=== PATIENT | female | born 1975 | race Caucasian/White ===

== ENCOUNTER 2023-05-24 14:46 | Outpatient (AMB) | payer MEDICARE, MEDICAID, SELFPAY ==
--- NOTE | 2023-05-24 14:52 | AM.OFFWIN_ITS ---
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 she states she has had surgery on her shoulders and the pain is not coming from shoulder. Patient Tobacco Use Status: Never used Tobacco Do you need a note to return to daycare/school/sports/work: Yes HPI HPI Comments History of Present Illness Details This is a 47-year-old female who presents to the office today for sick visit. Patient complaining of persistent posterior neck pain x2 weeks. Patient states she is status post left total shoulder replacement approximately 2 and half months ago. She states she has been following up with her orthopedic surgeon without difficulty and her shoulder is healing as expected. However, patient started to develop neck pain approximately 2 weeks ago. She denies any numbness/weakness/paresthesias of her extremities. She denies any known trauma or injury to the area. Patient states that she is on oxycodone status post shoulder surgery but she rarely takes the oxycodone as it makes her drowsy and she has to take care of her grandson. Patient states she has been on multiple medications including oxycodone, tramadol, gabapentin, methocarbamol, and lidocaine patches. She states the most helpful medication has been tramadol as this does not make her drowsy. Methocarbamol is also helpful but only last for about 3 hours. Patient states she is under a lot of stress as her daughter just gave but her daughter had eclampsia and her grandson is still in the hospital with a brain bleed and seizures. Patient was referred to physiatry for steroid injections but was unable to make an appointment until July. She states she is unable to function with the pain and she is unable to wait until then. [facility] Social History Patient Tobacco Use Status: Never used Tobacco Review of Systems Const All systems reviewed & are unremarkable except as noted in HPI and below Reports no additional complaints Eyes Reports no additional complaints ENT Reports no additional complaints Card Reports no additional complaints Resp Reports no additional complaints GI Reports no additional complaints Reports no additional complaints Musc Reports no additional complaints Skin/Breast Reports system reviewed and no additional complaints, except as documented Neuro Reports no additional complaints Psych Reports no additional complaints Endo Reports no additional complaints Jaleel/Lymph Reports no additional complaints Aller/Immun Reports no additional complaints Physical Exam Vital Signs: Last Vital Signs Pulse 86 05/24/23 14:54 BP 120/80 05/24/23 14:54 Pulse Ox 98 05/24/23 14:54 Oxygen Delivery Method Room Air 05/24/23 14:54 Const General: cooperative, healthy appearing, no acute distress and well developed Orientation/consciousness: patient oriented x3 HEENT Head: Yes normal to inspection Ears: hearing grossly normal bilaterally General nose exam: Normal external nose present Face and sinus: Yes normal facial exam Mouth: Normal oral and palatal mucosa present Eyes General: appearance normal, both eyes and all related structures Pupils: Equal, round and reactive pupils present EOM: EOMs intact bilaterally Neck Other: Full range of motion with mild pain. No meningeal signs. Mild tenderness to palpation of the paraspinal musculature bilaterally and mild tenderness to palpation and palpable muscle spasm of the trapezius bilaterally. Resp Effort & Inspection: normal respiratory effort and no respiratory distress Auscultation: clear to auscultation bilaterally Cardio Rate: regular rate Rhythm: regular rhythm Heart sounds: no gallops, no murmurs and no rubs Peripheral pulses: Peripheral pulses 2+ throughout GI Inspection: No distended Palpation (GI): Soft to palpation and nontender Auscultation: normal bowel sounds Skin General skin exam: no rashes or lesions noted Neuro General: patient oriented x3 Cranial nerves: Yes CN's II-XII intact bilaterally and Yes Equal, round and reactive pupils present Gait exam (Neuro): Normal gait present Motor exam (neuro): 5/5 motor strength present throughout Extrem General: Yes normal to inspection, Yes full ROM and Yes no clubbing, cyanosis or edema Psych Appearance: grossly normal Mental Status: mental status grossly normal Assessment & Plan Assessment & Plan (1) Cervicalgia: Code(s): M54.2 - Cervicalgia Plan: This is a 47-year-old female who is status post left shoulder replacement complaining of persistent neck pain despite multiple medications. Patient is presenting to the walk-in clinic today requesting a refill of tramadol as this is the only medication that seems to help. Patient states she also has oxycodone at home but she very rarely takes this as it makes her drowsy and she is helping to take care of her daughter and grandson in the hospital and she is unable to do her job while she is taking oxycodone. I explained to the patient that I can only give her a short course of tramadol and methocarbamol given this is just a walk-in clinic. Patient's Mass Pat was reviewed and she picked up 30 oxycodone 5 mg tablets on 01/31/2023 and has not had any other opioids dispensed since then. I strongly encouraged the patient to call the physiatry office and try to get an earlier appointment for her steroid injections. Patient was made aware that opioids and opioid analgesics are not a long-term solution for chronic neck pain. Patient verbalizes her understanding and she is in agreement with the plan. Medications: New methocarbamol 1,000 mg PO TID PRN 14 tabs 0RF muscle spasm tramadol 50 mg PO DAILY PRN 7 tabs 0RF pain Coding Level of Care Code New Pt Level 3 (79563) Diagnoses Cervicalgia M54.2
[2023-05-24 14:54] VITALS: BP 120/80; PULSE 86; O2SAT 98
== END 2023-05-24 15:30 | disposition home or self-care (01) ==
PROVIDERS: PCP Family Medicine; Visit Provider Physician Assistant Medical
DX: M54.2 Cervicalgia (principal)
CPT/HCPCS: 99203

== ENCOUNTER 2023-06-28 11:20 | Outpatient (AMB) | payer MEDICARE, MEDICAID, SELFPAY ==
[2023-06-28 12:40] VITALS: BP 130/70; PULSE 80; TEMP 36.8; O2SAT 99; BMI 34.0
--- NOTE | 2023-06-28 12:40 | AM.OFFWIN_ITS ---
Intake Vital Signs 06/28/23 12:40 Height 5 ft 4 in Weight 198 lb BMI 34.0 BP 130/70 Blood Pressure Location Lt brachial Position Sitting Pulse 80 Pulse Source Pulse Oximeter Temp 98.3 F Temp Source Temporal Artery Scan Pulse Oximetry (%) 99 Intake Visit Reasons: EP-Neck still [phone] Intake Note: pt is here for c/o neck pain Patient Tobacco Use Status: Never used Tobacco Allergies No Known Allergies Allergy (Verified 06/28/23 13:20) Medication List - Last Reconciled 06/28/23 by Matt Gustafson MD methocarbamol 1,000 mg PO TID PRN tramadol 50 mg PO DAILY tramadol 50 mg PO DAILY PRN Do you need a note to return to daycare/school/sports/work: Yes HPI EP-Neck still [phone] HPI Details 47-year-old female presents to the [facility] for a sick visit. Patient is requesting a 3 day refill on her tramadol and muscle relaxant. She has an upcoming appointment with the surgeon regarding her neck pain. Patient recently had left shoulder surgery in unrelated to it is having neck pain. She has received injections to relieve the pain in her neck many times in the past. Patient is also requesting a note for work. She is still having limited range of motion in her left arm after the surgery. [facility] Social History Patient Tobacco Use Status: Never used Tobacco Physical Exam Vital Signs: Last Vital Signs Temp 98.3 F 06/28/23 12:40 Pulse 80 06/28/23 12:40 BP 130/70 06/28/23 12:40 Pulse Ox 99 06/28/23 12:40 BMI result Body Mass Index 34.0 Const General: cooperative and healthy appearing Nutritional Appearance: well nourished Limitations: no limitations HEENT Head: Yes normal to inspection Eyes General: appearance normal, both eyes and all related structures Neck Neck: Yes normal visual inspection Extrem Other: Right shoulder: No AC joint tenderness. Able to abduct her arm up to 90 degr ees. Full abduction. Full internal and external rotation at the shoulder. Flexion of the arm at the shoulder is limited to 30 degrees. Greater elicits pain. Assessment & Plan Assessment & Plan (1) Cervicalgia: Code(s): M54.2 - Cervicalgia Plan: Three days prescription for tramadol and muscle relaxant provided. Previous visit reviewed. No further prescriptions from this office. Coding Level of Care Code Est Pt Level 3 (18190) Diagnoses Cervicalgia M54.2
== END 2023-06-28 13:21 | disposition home or self-care (01) ==
LOC: HO.HMGWI 11:21
PROVIDERS: PCP Family Medicine
DX: M54.2 Cervicalgia (principal)
CPT/HCPCS: 99213

== ENCOUNTER 2023-07-03 09:24 | Outpatient (AMB) | payer MEDICARE, MEDICAID, SELFPAY ==
[2023-07-03 09:28] VITALS: BMI 34.0
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
== END 2023-07-03 10:19 | disposition home or self-care (01) ==
PROVIDERS: PCP Family Medicine; Visit Provider Physical Medicine & Rehabilitation
DX: M79.18 Myalgia, other site (principal)
CPT/HCPCS: 20553; 99204

== ENCOUNTER 2023-07-03 12:48 | Outpatient (REF) | payer MEDICARE, MEDICAID, SELFPAY ==
--- NOTE | ~2023-07-03 | XR_ITS ---
EXAMINATION: XR CERVICAL SPINE CLINICAL INFORMATION: Shoulder COMPARISON: None available. TECHNIQUE: 3 views of the cervical spine were obtained. FINDINGS: There is straightening of cervical lordosis. Vertebral bodies are well aligned and intervertebral discs are preserved. Pedicles are intact and there is no evidence of spondylolysis or spondylolisthesis. Soft tissues unremarkable. XR/XR cervical spine 3V IMPRESSION: Straightening of cervical lordosis as a result of muscle spasm.
== END 2023-07-03 12:49 | disposition home or self-care (01) ==
LOC: HO.HOSX 12:48
PROVIDERS: Visit Provider Physical Medicine & Rehabilitation
DX: M54.2 Cervicalgia (principal); M79.18 Myalgia, other site
CPT/HCPCS: 20553; 72040; 99202

== ENCOUNTER 2023-07-11 11:56 | Outpatient (AMB) | payer MEDICARE, MEDICAID, SELFPAY ==
[2023-07-11 12:13] VITALS: BMI 34.0
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
== END 2023-07-11 12:39 | disposition home or self-care (01) ==
PROVIDERS: PCP Family Medicine; Visit Provider Physical Medicine & Rehabilitation
DX: M54.2 Cervicalgia (principal); G89.29 Other chronic pain; M79.18 Myalgia, other site
CPT/HCPCS: 20553; 99214

== ENCOUNTER → 2023-07-11 11:56 | Outpatient (BNVA) | payer MEDICARE, MEDICAID, SELFPAY | PROVIDERS: PCP Family Medicine; Visit Provider Physical Medicine & Rehabilitation | DX: M79.18 Myalgia, other site (principal); M54.2 Cervicalgia; G89.29 Other chronic pain | CPT/HCPCS: 20553; 99212 ==

== ENCOUNTER → 2023-07-17 12:44 | Outpatient (BNVA) | payer MEDICARE, MEDICAID, SELFPAY | PROVIDERS: PCP Family Medicine; Visit Provider Physical Medicine & Rehabilitation | DX: M79.18 Myalgia, other site (principal) | CPT/HCPCS: 20553 ==

== ENCOUNTER 2023-07-17 12:47 | Outpatient (AMB) | payer MEDICARE, MEDICAID, SELFPAY ==
--- NOTE | 2023-07-17 12:45 | MHC.OFFVIS ---
Intake Vital Signs 07/17/23 12:46 Height 5 ft 4 in Weight 198 lb BMI 34.0 Intake Visit Reasons: OV- Cervicalgia INJ #2 Intake Note: Amy is a 47 year old female who presents today for her third trigger point injection of her neck . She reports that this last injection helped but the following day she was unable to be at work. She would like to have a note that will explain why she is unable to be at work the day following her injection. Allergies levofloxacin [From Levaquin] Allergy (Verified 07/11/23 12:14) Hives Seashell Allergy (Uncoded 07/11/23 12:14) unknown HPI HPI Comments History of Present Illness Details Here for 3rd trigger point injection. Had post injection pain for 1 day after class 1. Overall feeling better. [facility] Medical History Chronic neck pain Myofascial pain Social History Patient Tobacco Use Status: Never used Tobacco Physical Exam Vital Signs: BMI result Body Mass Index 34.0 Office Procedures Therapeutic Injection Therapeutic Injection Details: Trigger point injection, bilateral upper trapezius. Conset obtained. Trigger points palpated on bilateral upper trapezius, 2 on each side. 1 ml of 2% Lidocaine injected in each site, total of 4 mL. Patient tolerated procedure well. Post-injection instructions given. 89782-Gwihlqa Point Injection =/>3 sites All charges added?: Procedure code (CPT) selection complete Results Reviewed Results Reviewed: 07/17/23 12:37 Lidocaine HCl 2 % MPF [Xylocaine 2 % MPF] 5 ml .ROUTE .[facility] Assessment & Plan Assessment & Plan (1) Myofascial pain: Code(s): M79.18 - Myalgia, other site Plan Tolerated procedure well. Work note to excuse from work 1 day post injection. Assessment and plan discussed with patient, and patient was agreeable. All questions were answered thoroughly. Anaid Bui MD, HETAL Board Certified, [place] [employer] and Rehabilitation (ABPMR) Board Certified, [place] [employer] Electrodiagnostic Medicine (ABEM) Orders: Orders Trigger Point Injection Today M79.18 - Myalgia, other site Coding Level of Care Code Procedure Only Diagnoses Myofascial pain M79.18 CPT Codes Therapeutic Injection - Ther Injection 2: 15069-Gbjuisp Point Injection =/>3 sites ([id number])
[2023-07-17 12:46] VITALS: BMI 34.0
== END 2023-07-17 13:02 | disposition home or self-care (01) ==
PROVIDERS: PCP Family Medicine; Visit Provider Physical Medicine & Rehabilitation
DX: M79.18 Myalgia, other site (principal)
CPT/HCPCS: 20553

== ENCOUNTER 2023-10-29 08:35 | Outpatient (AMB) | payer MEDICARE, MEDICAID, SELFPAY ==
[2023-10-29 08:43] VITALS: BP 112/70; PULSE 101; TEMP 37.1; O2SAT 99; BMI 33.0
--- NOTE | 2023-10-29 08:43 | AM.OFFWIN_ITS ---
Intake Vital Signs 10/29/23 08:43 Height 5 ft 4 in Weight 192 lb BMI 33.0 BP 112/70 Blood Pressure Location Lt brachial Position Sitting Pulse 101 H Pulse Source Pulse Oximeter Temp 98.8 F Temp Source Temporal Artery Scan Pulse Oximetry (%) 99 Oxygen Delivery Method Room Air Intake Visit Reasons: EP Lower back pain Intake Note: pt is here today for lower back pain started yesterday Patient Tobacco Use Status: Never used Tobacco Allergies levofloxacin [From Levaquin] Allergy (Verified 10/29/23 08:43) Hives Seashell Allergy (Uncoded 07/11/23 12:14) unknown Do you need a note to return to daycare/school/sports/work: No HPI HPI Comments History of Present Illness Details 48-year-old female presents today compla ining of acute low back pain that started 24 hours ago. The patient stated she took a borrowed baclofen without results. She has a past medical history of a hysterectomy 1 week ago of which she has no problems. She has no abdominal pain she is passing gas and has no trouble with her stool and/or urinary output. She states her back pain began when she bent over to milk pickup driver a small package that was delivered to her doorstep. The patient denies any radiating pain numbness tingling tingling or paresthesias in her lower extremities. She has no pain when seated but moving to a standing or walking position causes increasing pain directly over her lumbar spine at L4-5. [facility] Medical History Chronic neck pain Myofascial pain Social History Patient Tobacco Use Status: Never used Tobacco Review of Systems [facility] Reports arthralgias Physical Exam Vital Signs: Last Vital Signs Temp 98.8 F 10/29/23 08:43 Pulse 101 H 10/29/23 08:43 BP 112/70 10/29/23 08:43 Pulse Ox 99 10/29/23 08:43 Oxygen Delivery Method Room Air 10/29/23 08:43 BMI result Body Mass Index 33.0 Const General: acute distress moderate HEENT Head: Yes normal to inspection, Yes normocephalic and Yes atraumatic Ears: hearing grossly normal bilaterally General nose exam: Normal external nose present Face and sinus: Yes normal facial exam Eyes General: appearance normal, both eyes and all related structures Chest Chest palpation & inspection: normal inspection of the chest Resp Effort & Inspection: normal respiratory effort Auscultation: clear to auscultation bilaterally Cardio Rate: regular rate Rhythm: regular rhythm GI Inspection: Yes abdominal wall ecchymosis (At arthroscopy portals), Yes incision (Arthroscopy portals present no sign of infection) and Yes scar (hysterectomy arthroscopy portals were present with mild ecchymosis ) Palpation (GI): Soft to palpation Percussion: Yes normal to percussion Auscultation: normal bowel sounds General: Yes no CVA tenderness Back/Spine/Pelvis Back: no CVA tenderness Thoracic/Lumbar Spine: thoraco-lumbar ROM normal (Limited due to pain), straight leg raise negative bilaterally and lumbar spinal tenderness at L4 and at L5 Skin Rashes: no rashes Neuro Motor exam (neuro): Normal motor muscle tone present throughout Results AMB Urinalysis, Automated UA Leukoctes 0 Amrit/uL Last Edit by Castro Rodrigez CMA on 10/29/23 09:46 UA Nitrite Negative Last Edit by Castro Rodrigez CMA on 10/29/23 09:46 UA Urobilinogen 0.2 mg/dL Last Edit by Castro Rodrigez CMA on 10/29/23 09 :46 UA Protein 0 mg/dL Last Edit by Castro Rodrigez CMA on 10/29/23 09:46 UA pH 5.5 Last Edit by Castro Rodrigez CMA on 10/29/23 09:46 UA Blood 80 Bk/uL Last Edit by Castro Rodrigez CMA on 10/29/23 09:46 UA Specific [place] 1.025 Last Edit by Castro Rodrigez CMA on 10/29/23 09:46 UA Ketone Negative Last Edit by Castro Rodrigez CMA on 10/29/23 09:46 UA Bilirubin 0 mg/dL Last Edit by Castro Rodrigez CMA on 10/29/23 09:46 UA Glucose 0 mg/dL Last Edit by Castro Rodrigez CMA on 10/29/23 09:46 Results Reviewed Results Reviewed: X-ray of the lumbar spine is reviewed today which seemed to have no bony abnormalities. Will call the patient if radiologist presents any findings. Assessment & Plan Assessment & Plan (1) Low back pain: Code(s): M54.50 - Low back pain, unspecified Plan: The patient will use a muscle relaxer for 2 or 3 days to see if we can relieve the acute low back pain. She was instructed to contact her surgeon to be sure there isn't a late developing surgical postop complication. She was advised that if the pain increases or her lower extremities become weak she is to go to the emergency room as soon as possible Plan See plan Orders: Orders AMB Urinalysis Automated Today Z13.9 - Encounter for screening, unspecified XR lumbar spine 2-3V Today Medications: New cyclobenzaprine 5 mg PO TID 14 tabs 0RF Coding Level of Care Code Est Pt Level 3 (28606) Diagnoses Low back pain M54.50 Time Spent (min) 30
== END 2023-10-29 10:19 | disposition home or self-care (01) ==
PROVIDERS: PCP Family Medicine; Visit Provider Physician Assistant Medical
DX: M54.50 Low back pain, unspecified (principal)
CPT/HCPCS: 81003; 99213

== ENCOUNTER 2023-10-29 09:16 | Outpatient (REF) | payer MEDICARE, MEDICAID, SELFPAY ==
--- NOTE | ~2023-10-29 | XR_ITS ---
EXAMINATION: XR LUMBOSACRAL SPINE CLINICAL INFORMATION: Low back pain COMPARISON: None available. TECHNIQUE: Three views of the lumbosacral spine. FINDINGS: The vertebral bodies and posterior elements are normal. The disc spaces are preserved and the vertebral alignment is normal. The paraspinal soft tissues are normal. XR/XR lumbar spine 2-3V IMPRESSION: Unremarkable chest examination.
== END 2023-10-29 09:17 | disposition home or self-care (01) ==
LOC: HO.HMGCX 09:16
PROVIDERS: PCP Nurse Practitioner Primary Care; Visit Provider Physician Assistant Medical
DX: M54.50 Low back pain, unspecified (principal)
CPT/HCPCS: 72100

== ENCOUNTER 2023-11-06 15:43 | Outpatient (AMB) | payer MEDICARE, MEDICAID, SELFPAY ==
--- NOTE | 2023-11-06 16:02 | MHC.PC.OV ---
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 Intake Note: Pt is here to est care Dr Preciado executive producer [facility] oncology/[facility] Allergies levofloxacin [From Levaquin] Allergy (Verified 11/06/23 16:09) Hives Seashell Allergy (Uncoded 11/06/23 16:09) unknown Tobacco use date assessed: 11/06/23 Dental Screening Dental Screen Date: 11/06/23 Did you have a dental visit in the last 12 months?: Yes Did you have a dental problem in the last 6 months where you did not have access to dental care?: No Was dental information given to patient?: Patient has dentist 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 Mammo is up to date according to pt. Due for colon screen, will refer to GI. Pt underwent a left shoulder rotator cuff repair in January of 2023 at [facility]. She went to PT after surgery. She does follow up with ortho and receives regular cortisone injections. Pt reports ongoing pain to her neck. Previous XR showed straightening of cervical lordosis as a result of muscle spasm. She has failed PT. She saw a records tech and had myofascial injections which made the pain worse. Will order MRI at this point. [facility] Medical History Chronic neck pain Myofascial pain Family History (Updated 11/06/23 @ 16:13 by Nava Villeda CMA) Father Mental health disorder Mother Mental health disorder Maternal Grandfather Mental health disorder Maternal Grandfather Mental health disorder Paternal Grandfather Mental health disorder Paternal Grandmother Mental health disorder Social History Housing: House Patient Tobacco Use Status: Never used Tobacco e-Cigarette/Vaping Use: Currently Using Second Hand Smoke Exposure: No service: No Current occupational status: employed Current occupation: [email or web address] Current occupational exposures/hazards: No Cognitive needs: No Hearing needs: No Vision needs: No Questionnaire PHQ-9 Over the last 2 weeks, how often have you been bothered by any of the following problems? 1. Little interest or pleasure in doing things: nearly every day 2. Feeling down, depressed, or hopeless: nearly every day 3. Trouble falling or staying asleep, or sleeping too much: nearly every day 4. Feeling tired or having little energy: nearly every day 5. Poor appetite or overeating: nearly every day 6. Feeling bad about yourself - or that you are a failure or have let yourself or your family down: nearly every day 7. Trouble concentrating on things, such as reading the newspaper or watching television: nearly every day 8. Moving or speaking so slowly that other people could have noticed. Or the opposite - being so fidgety or restless that you have been moving around a lot more than usual: nearly every day 9. Thoughts that you would be better off or of hurting yourself in some way: not at all Total score: 24 Depression Screening Interpretation: Positive (seen by team today, denies any si or hi) Depression Screening Follow-up: Existing condition Depression Screening Done: Yes Source: Developed by Drs. Jimy Carranza, Elsie iBll, Dilan Bass and colleagues, with an educational maureen from [employer]. Thrive Questionnaire Date Thrive assessed: 11/06/23 I am a: Patient What is your living situation today?: I have a steady place to live Within the past 12 months, did the food you bought not last and you didn't have the money to get more?: Sometimes True Within the past 12 months, did you worry whether your food would run out before you got money to buy more?: Sometimes True Do you have trouble paying for medicines?: No Do you have trouble getting transportation to medical appointments?: No Do you have trouble paying your heating and electricity bill?: Yes Do you have trouble taking care of your child, family member or friend?: No Do you have trouble with day-to-day activities such as bathing, preparing meals, shopping, managing finances, etc.?: No Are you currently unemployed and looking for a job?: No Are you interested in more education?: No Currently or been in a relationship where the following occur: no concerns reported THRIVE Score: 3 AUDIT C Alcohol Use Questionnaire (AUDIT-C) 1. How often do you have a drink containing alcohol?: Never Total Score: 0 JAIMIE-7 AMB Questionnaire JAIMIE-7 Date JAIMIE - 7 assessed: 11/06/23 Feeling nervous, anxious, or on edge: 3 = Nearly every day Not being able to stop or control worryin = Nearly every day Worrying too much about different things: 3 = Nearly every day Trouble relaxin = Nearly every day Being so restless that it is hard to sit still: 3 = Nearly every day Becoming easily annoyed or irritable: 3 = Nearly every day Feeling afraid as if something awful might happen: 3 = Nearly every day Total JAIMIE-7 score (0-4 normal; 5-9 mild; 10-14 moderate; 15-21 severe): 21 Source: Developed by Drs. Jimy Carranza, Elsie Bill, Dilan Bass and colleagues, with an educational maureen from [employer]. JAIMIE-7 Assessment Billing JAIMIE-7 Assessment Tool: JAIMIE-7 Assessment 52537 (denies any si or hi,( robert [facility]) saw pt today) Review of Systems Const Reports as per [facility] Physical exam (Primary Care) Vital Signs: Last Vital Signs Pulse 96 11/06/23 16:07 BP 100/52 L 11/06/23 16:07 Pulse Ox 99 11/06/23 16:07 Oxygen Delivery Method Room Air 11/06/23 16:07 BMI result Body Mass Index 33.1 Tobacco/Smoking Status: Tobacco use Status Tobacco use date assessed 11/06/23 11/06/23 16:18 Patient Tobacco Use Status Never used Tobacco 11/06/23 16:03 e-Cigarette/Vaping Use Currently Using 11/06/23 16:18 PHQ-9: PHQ-9 Score PHQ-9: Total score 24 11/06/23 16:47 Depression Screening Interpretation: Positive (seen by team today, denies any si or hi) Depression Screening Follow-up: Existing condition Thrive Assessment: Date of Thrive Assessment Date Thrive assessed 11/06/23 11/06/23 16:20 Currently or been in a relationship where the following occur: no concerns reported Const General: cooperative Nutritional Appearance: obese Orientation/consciousness: patient oriented x3 Resp Effort & Inspection: normal respiratory effort Auscultation: clear to auscultation bilaterally Cardio Rate: regular rate Rhythm: regular rhythm Heart sounds: S1 normal heart sound present and S2 normal heart sound present Back/Spine/Pelvis Other: cervical neck pain exacerbated with chin tucks, chin raises, and turning head side to side, + spurlings to left with radicular symptoms to left shoulder Skin Other: 5 abd lap sites without s/s of infection Neuro General: patient oriented x3 Psych Appearance: grossly normal Mental Status: mental status grossly normal Speech and movement: Normal speech and movement present Affect: normal affect Attitude: cooperative Thought process: Normal thought process present Thought content: Normal thought content present Insight: Good insight present (Psych) Judgement: Good judgement present (Psych) Assessment and Plan Assessment & Plan (1) Physical exam: Code(s): Z00.00 - Encounter for general adult medical examination without abnormal findings Plan: Labs ordered for future PE (2) Screening for colon cancer: Code(s): Z12.11 - Encounter for screening for malignant neoplasm of colon Plan: Referred to GI (3) Chronic neck pain: Code(s): M54.2 - Cervicalgia; G89.29 - Other chronic pain Plan: MRI ordered Plan The patient agreed to the use of a medical laboratory technical officer for this encounter. Scribed for ROBINA Westbrook by Jodi Vale medical laboratory technical officer, on 11/06/2023 at 14:45 EST. Orders: Orders MR cervical spine wo con Today G89.29 - Other chronic pain, M54.2 - Cervicalgia Comprehensive [place]. Panel Fast Today Z00.00 - Encounter for general adult medical examination without abnormal findings TSH reflex Free T4 Today Z00.00 - Encounter for general adult medical examination without abnormal findings UA CC w/rflx Micro + Cult Today Z00.00 - Encounter for general adult medical examination without abnormal findings Complete Blood Count Auto Diff Today Z00.00 - Encounter for general adult medical examination without abnormal findings Lipid Panel Today Z00.00 - Encounter for general adult medical examination without abnormal findings Referrals Gastroenterology Referral Z12.11 - Encounter for screening for malignant neoplasm of colon Medications: New clonidine HCl 0.1 mg PO BID 90 days 180 tabs 0RF Coding Level of Care Code New Pt Level 3 (20584) Diagnoses Physical exam Z00. Screening for colon cancer Z12.11 Chronic neck pain M54.2; G89.29 Additional Codes JAIMIE-7 Assessment Billing - JAIMIE-7 Assessment Tool: JAIMIE-7 Assessment 82071 ([id number])
[2023-11-06 16:07] VITALS: BP 100/52; PULSE 96; O2SAT 99; BMI 33.1
== END 2023-11-06 17:13 | disposition home or self-care (01) ==
PROVIDERS: PCP Family Medicine; Visit Provider Nurse Practitioner Family
DX: M54.2 Cervicalgia (principal); G89.29 Other chronic pain; Z12.11 Encounter for screening for malignant neoplasm of colon
CPT/HCPCS: 99213

== ENCOUNTER 2023-12-10 17:27 | Outpatient (REF) | payer MEDICARE, MEDICAID, SELFPAY ==
--- NOTE | ~2023-12-10 | MR_ITS ---
EXAMINATION: MR CERVICAL SPINE WITHOUT CONTRAST CLINICAL INFORMATION: Chronic neck pain COMPARISON: Cervical radiograph 07/03/2023 TECHNIQUE: MRI of the cervical spine was obtained using routine sequences without contrast. FINDINGS: Nonspecific straightening of the normal cervical lordosis. Trace retrolisthesis of C3-C4 and C4-C5. Cervical vertebral body heights are maintained. No expansile or destructive osseous lesion. The cervical spinal cord is normal in signal. C2-C3: No significant spinal canal or neural foraminal stenosis. C3-C4: Facet arthropathy. Trace central disc protrusion. The spinal canal and neural foramen are not significantly narrowed. C4-C5: Disc osteophyte complex with left subarticular disc protrusion. Facet arthropathy. The spinal canal is patent. Mild narrowing of the left neural foramen. C5-C6: Trace disc bulge. The spinal canal and neural foramen are patent. C6-C7: Small central disc protrusion without significant spinal canal or neural foraminal stenosis. C7-T1: No significant spinal canal or neural foraminal stenosis. MR/MR cervical spine wo con IMPRESSION: Mild multilevel degenerative changes of the cervical spine as described above. No significant spinal canal or neural foraminal stenosis.
== END 2023-12-10 17:28 | disposition home or self-care (01) ==
LOC: HO.MRI 17:27
PROVIDERS: PCP Nurse Practitioner Family; Visit Provider Nurse Practitioner Family
DX: M54.2 Cervicalgia (principal); G89.29 Other chronic pain
CPT/HCPCS: 72141

== ENCOUNTER 2024-01-02 12:51 | Outpatient (AMB) | payer MEDICARE, MEDICAID, SELFPAY ==
--- NOTE | 2024-01-02 12:56 | HO.SPINEOV ---
Intake Visit Reasons: Cervicalgia Intake Note: Ms. Randolph is here today c/o Chronic neck pain. Remelter Required: No Allergies levofloxacin [From Levaquin] Allergy (Verified 01/02/24 13:02) Hives Seashell Allergy (Uncoded 11/06/23 16:09) unknown Assessment & Plan Assessment & Plan (1) Chronic neck pain: Code(s): M54.2 - Cervicalgia; G89.29 - Other chronic pain Category: Medical Plan Dear Romeo Thank you for referring Mrs Randolph to our office today. She is a 48-year-old female presents to the office today for evaluation of a chronic neck pain which is in the posterior cervical midline, radiates out to the sides of her neck with limited range of motion. More recently started to get pain down her right arm going into her hand with feelings of numbness. She believes it all started sometime in June 2022 when she had a trauma to her left shoulder that ultimately dislocated it and caused a a full thickness tear of the rotator cuff. She ultimately underwent a repair of this last year but unfortunately the neck pain has persisted. She has done injections, specifically trigger point injections from time to time and these did work for a while but now stop. She tried physical therapy, chiropractic. She takes ibuprofen and Tylenol to help with the pain. PMH: Recently diagnosed with endometrial cancer and underwent a hysterectomy, oophorectomy. History of hypertension, , cholecystectomy, rotator cuff repair Social hx: She does not smoke but she does do vaping, denies any alcohol or drug abuse Medications: She takes clonidine, Seroquel, estrogen patches and ibuprofen/Tylenol Allergies: Levaquin Physical exam: She is awake alert oriented no acute distress, she has intact strength and reflexes, some diminished range of motion with lateral rotation. Imaging review: Cervical MRI done at [place] shows some very mild degenerative disc disease at C4-5 but otherwise it looks like a more less normal MRI, I do not see any evidence of nerve compression. Impression: 48-year-old female presents to the office today for evaluation of a chronic neck pain, more recently has intermittent arm pain, but her MRI is more less normal with no significant findings to explain the source of the pain. That being said, the pain could be muscular or myofascial and these things do not show up on MRI. I do not have any surgery to offer her to help with the symptoms. We did discuss follow-up with a pain management provider as she is interested in pursuing other nonoperative treatments. She did try someone within the [employer] system but did not have a great experience and would be interested in trying someone else. She will let me know how she would like to proceed with this. Thank you for allowing us to care for your patient. The total time spent with this visit with this patient was 45 minutes reviewing history, physical exam, cervical spine MRI imaging review, and implementation of treatment plan or further diagnostic testing Bryce Willingham MD,PhD [facility] Coding Level of Care Code New Pt Level 4 (36108) Diagnoses Chronic neck pain M54.2; G89.29
== END 2024-01-02 13:44 | disposition home or self-care (01) ==
PROVIDERS: PCP Nurse Practitioner Family; Referring Provider Nurse Practitioner Family; Visit Provider Physician Assistant
DX: M54.2 Cervicalgia (principal); G89.29 Other chronic pain
CPT/HCPCS: 99204

== ENCOUNTER → 2024-01-02 12:51 | Outpatient (BNVA) | payer MEDICARE, MEDICAID, SELFPAY | PROVIDERS: PCP Nurse Practitioner Family; Visit Provider Physician Assistant | DX: M54.2 Cervicalgia (principal); G89.29 Other chronic pain | CPT/HCPCS: 99202 ==

== ENCOUNTER 2024-01-02 13:56 | Outpatient (AMB) | payer MEDICARE, MEDICAID, SELFPAY ==
[2024-01-02 14:01] VITALS: BP 128/80; PULSE 92; TEMP 36.6; O2SAT 98; BMI 34.2
--- NOTE | 2024-01-02 14:01 | AM.OFFWIN_ITS ---
Intake Vital Signs 01/02/24 14:01 Height 5 ft 4 in Weight 199 lb BMI 34.2 BP 128/80 Blood Pressure Location Lt brachial Position Sitting Pulse 92 Pulse Source Pulse Oximeter Temp 97.9 F Temp Source Temporal Artery Scan Pulse Oximetry (%) 98 Oxygen Delivery Method Room Air Intake Visit Reasons: EP Neck pain/Refill Triamcinolone Acetonide 0.1 Intake Note: pt is here today for neck pain started 2 years ago Patient Tobacco Use Status: Never used Tobacco Allergies levofloxacin [From Levaquin] Allergy (Verified 01/02/24 14:08) Hives Seashell Allergy (Uncoded 11/06/23 16:09) unknown Do you need a note to return to daycare/school/sports/work: Yes HPI HPI Comments History of Present Illness Details The patient presents to urgent care for evaluation of 2 problems. She reports ongoing chronic neck pain which is disruptive to her during the day and at night. She has been using ibuprofen and Tylenol. She has been to see orthopedic surgeons and done physical therapy. There is nothing surgical that can be repaired. She is here requesting tramadol as this medication helps her and she is able to take it while working. She states that oxycodone is too strong for her she is unable to take it at work. As a secondary concern she has recurrent contact dermatitis on her feet and is requesting a refill of triamcinolone cream. She does not have any active inflammatory problem with the feet at the moment but there are some scars that she is able to show me. [facility] Medical History Chronic neck pain Myofascial pain Family History (Updated 11/06/23 @ 16:13 by Nava Villeda CMA) Father Mental health disorder Mother Mental health disorder Maternal Grandfather Mental health disorder Maternal Grandfather Mental health disorder Paternal Grandfather Mental health disorder Paternal Grandmother Mental health disorder Social History Housing: House Patient Tobacco Use Status: Never used Tobacco e-Cigarette/Vaping Use: Currently Using Second Hand Smoke Exposure: No service: No Current occupational status: employed Current occupation: [employer] Current occupational exposures/hazards: No Cognitive needs: No Hearing needs: No Vision needs: No Review of Systems Eyes Reports no additional complaints ENT Reports Normal hearing present and Denies dysphagia Card Denies dyspnea and Denies slow heart rate Resp Denies cough and Denies dyspnea GI Denies dysphagia and Denies heartburn Denies dysuria Musc Denies tingling Skin/Breast Reports lesions, Denies skin ulcer and Denies unusual bruising Neuro Reports Normal hearing present, Denies Sensory deficit (Neuro), Denies tingling and Denies paresthesias Physical Exam Vital Signs: Last Vital Signs Temp 97.9 F 01/02/24 14:01 Pulse 92 01/02/24 14:01 BP 128/80 01/02/24 14:01 Pulse Ox 98 01/02/24 14:01 Oxygen Delivery Method Room Air 01/02/24 14:01 BMI result Body Mass Index 34.2 Const General: healthy appearing and no acute distress Resp Effort & Inspection: normal respiratory effort and able to speak in complete sentences Skin Other: Feet: Lateral aspects bilaterally there is some hyperpigmentation from scars no open wounds Neuro Cranial nerves: Yes Normal hearing present Sensory Exam: No Sensory deficit (Neuro) Assessment & Plan Assessment & Plan (1) Chronic neck pain: Code(s): M54.2 - Cervicalgia; G89.29 - Other chronic pain (2) Contact dermatitis: Code(s): L25.9 - Unspecified contact dermatitis, unspecified cause Plan 1. Chronic neck pain. Will give patient a small prescription for tramadol. Recommend close follow-up to PCP. 2. Contact dermatitis. Will refill triamcinolone. Medications: New tramadol 25 mg PO Q8H PRN 14 tabs 0RF pain triamcinolone acetonide 0.1% 1 appl topical BID 15 grams 0RF Coding Level of Care Code Est Pt Level 3 (91098) Diagnoses Chronic neck pain M54.2; G89.29 Contact dermatitis L25.9
== END 2024-01-02 14:56 | disposition home or self-care (01) ==
PROVIDERS: PCP Nurse Practitioner Family; Visit Provider Emergency Medicine
DX: M54.2 Cervicalgia (principal); G89.29 Other chronic pain; L25.9 Unspecified contact dermatitis, unspecified cause
CPT/HCPCS: 99213

== ENCOUNTER 2024-01-04 11:59 | Outpatient (AMB) | payer MEDICARE, MEDICAID, SELFPAY ==
[2024-01-04 12:18] VITALS: BP 124/70; PULSE 100; TEMP 36.8; O2SAT 100; BMI 34.3
--- NOTE | 2024-01-04 12:18 | MHC.OFFWIV ---
Intake Vital Signs 01/04/24 12:18 Height 5 ft 4 in Weight 200 lb BMI 34.3 BP 124/70 Blood Pressure Location Lt brachial Position Sitting Pulse 100 Pulse Source Pulse Oximeter Temp 98.3 F Temp Source Oral Pulse Oximetry (%) 100 Oxygen Delivery Method Room Air Intake Visit Reasons: EP neck pain seeking pain medication Intake Note: pt was given a rx for tramadol 25mg, but ins doens't cover it, ins will cover 50mg instead: Spoke to steven the pharmacist at [facility] and it was verified Patient Tobacco Use Status: Never used Tobacco Allergies levofloxacin [From Levaquin] Allergy (Verified 01/02/24 14:08) Hives Seashell Allergy (Uncoded 11/06/23 16:09) unknown Medication List - Last Reconciled 01/04/24 by Kenia Villegas, PLASTICS ENGINEERING TEACHER- clonidine HCl 0.1 mg PO BID 90 days quetiapine (Seroquel) 100 mg PO BEDTIME triamcinolone acetonide 0.1% 1 appl topical BID HPI HPI Comments History of Present Illness Details Here today to receive a new prescription for tramadol. She was seen in this office and a prescription for tramadol 25 mg was sent to her pharmacy. Unfortunately the pharmacy was not able to get 25 mg tablets and they have not been able to receive a new order for 50 mg tabs to be sent in. ELECTRICAL TECHNOLOGY INSTRUCTOR was reviewed. Chart was reviewed. What she says today is consistent with what I am finding in the chart. Therefore a prescription for tramadol 50 mg take half a tab twice per day as needed dispense 10 with no refills will be given. She is aware that she needs to follow up with her primary care provider going forward in the urgent care will not continue to manage a refill any chronic medication. She reports that her primary care appointment is scheduled for January 27. [facility] Medical History Chronic neck pain Myofascial pain Family History (Updated 11/06/23 @ 16:13 by Nava Villeda CMA) Father Mental health disorder Mother Mental health disorder Maternal Grandfather Mental health disorder Maternal Grandfather Mental health disorder Paternal Grandfather Mental health disorder Paternal Grandmother Mental health disorder Social History Housing: House Patient Tobacco Use Status: Never used Tobacco e-Cigarette/Vaping Use: Currently Using Second Hand Smoke Exposure: No service: No Current occupational status: employed Current occupation: [employer] Current occupational exposures/hazards: No Cognitive needs: No Hearing needs: No Vision needs: No Physical Exam Vital Signs: Last Vital Signs Temp 98.3 F 01/04/24 12:18 Pulse 100 01/04/24 12:18 BP 124/70 01/04/24 12:18 Pulse Ox 100 01/04/24 12:18 Oxygen Delivery Method Room Air 01/04/24 12:18 BMI result Body Mass Index 34.3 Assessment & Plan Assessment & Plan (1) Chronic neck pain: Code(s): M54.2 - Cervicalgia; G89.29 - Other chronic pain Plan: . Plan This note is constructed using voice recognition software. While every effort has been made to ensure accuracy in safety analyst, still errors may have been included Sometimes, these errors may affect the content or meaning of the given sentence . Total time spent caring for the patient today was 30 minutes. This includes time spent before the visit reviewing the chart, time spent during the visit, and time spent after the visit on documentation Medications: New tramadol 25 mg (1/2 x 50 mg) PO BID PRN 10 tabs 0RF pain Coding Level of Care Code Est Pt Level 4 (94922) Diagnoses Chronic neck pain M54.2; G89.29
== END 2024-01-04 12:57 | disposition home or self-care (01) ==
PROVIDERS: PCP Nurse Practitioner Family; Visit Provider Nurse Practitioner Family
DX: M54.2 Cervicalgia (principal); G89.29 Other chronic pain
CPT/HCPCS: 99214

== ENCOUNTER 2024-01-28 13:37 | Outpatient (AMB) | payer MEDICARE, MEDICAID, SELFPAY ==
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
[2024-01-28 13:49] VITALS: BP 120/80; PULSE 78; O2SAT 100; BMI 35.0
== END 2024-01-28 15:17 | disposition home or self-care (01) ==
PROVIDERS: PCP Nurse Practitioner Family; Visit Provider Nurse Practitioner Family
DX: M54.2 Cervicalgia (principal); G89.29 Other chronic pain; M79.18 Myalgia, other site
CPT/HCPCS: 99213

== ENCOUNTER 2024-03-18 07:37 | Outpatient (REF) | payer MEDICARE, MEDICAID, SELFPAY ==
[2024-03-18 10:03] LABS: MANUAL DIFF FLAG NO
[2024-03-18 10:09] LABS: Appearance Urine Clear; Color Urine Dark Yellow; Glucose Urine UA Negative (Negative); Leukocyte Esterase Urine Negative (Negative); Nitrite Urine Negative (Negative); Specific Gravity - Urine 1.025 (1.005-1.025); UMIC TRIGGER UACC YES; Urine Blood Trace (Negative); Urine Ketones Negative (Negative); Urine Protein Trace mg/dL (Neg-Trace)
[2024-03-18 10:14] LABS: Basophils Percent Auto 0.3 % (0-2); Eosinophils Absolute Auto 0.1 X10*3/uL (0.0-0.4); Eosinophils Percent Auto 1.6 % (0-4); Hemoglobin 13.7 g/dl (12.0-16.0); Imm Gran Abs Auto 0.01 X10*3/uL (0.00-0.03); Imm Gran Pct Auto 0.2 % (0.0-0.4); Lymphocytes Absolute Auto 0.7 X10*3/uL (1.2-4.9); Lymphocytes Percent Auto 11.2 % (20-40); Mean Corpuscular HGB Conc 33.4 g/dl (31.0-35.0); Mean Corpuscular Hemoglobin 30.4 pg (27.0-33.0); Mean Corpuscular Volume 91.1 fL (80.0-98.0); Mean Platelet Volume 10.4 fL (9.4-12.3); Monocytes Absolute Auto 0.5 X10*3/uL (0.1-1.2); Monocytes Percent Auto 8.3 % (2-11); Neutrophils Absolute Auto 4.9 x10*3/uL (2.0-8.3); Neutrophils Percent Auto 78.4 % (45-73); Platelet Count 209 X10*3/uL (160-400); Red Cell Distribution Width 14.2 % (11.0-16.0); White Blood Count 6.2 X10*3/uL (4.8-10.8)
[2024-03-18 10:43] LABS: Bacteria Urine None Seen (None Seen); Hyaline Casts Urine 0-2 /LPF (0-2); WBC Urine 0-5 /HPF (0-5)
[2024-03-18 10:46] LABS: Alanine Aminotransferase 195 U/L (0-31); Albumin Level 4.1 g/dL (3.5-5.0); Alkaline Phosphatase 242 U/L (39-117); Anion Gap 11 (12-20); Aspartate Amino Transferase 364 U/L (5-31); Bilirubin Total 0.8 mg/dL (0.0-1.0); Blood Urea Nitrogen 10 mg/dL (9-16); Calcium 8.8 mg/dL (8.4-10.2); Carbon Dioxide 27 mmol/L (22-29); Chloride 104 mmol/L (96-108); Cholesterol 209 mg/dL (<200); Estimated Glomerular Filt Rate 57; Glucose Fasting 116 mg/dL (60-99); HDL Cholesterol 64 mg/dL (>40); LDL Cholesterol Calculated 123 mg/dL (<100); Potassium 3.4 mmol/L (3.3-5.1); Sodium 139 mmol/L (135-145); TSH reflex Free T4 49.17 uIU/mL (0.32-4.0); Total Protein 7.3 g/dL (6.5-8.0); Triglycerides 110 mg/dL (<150)
[2024-03-18 11:21] LABS: Free T4 (Free Thyroxine) < 0.42 ng/dL (0.71-1.85)
[2024-03-19 20:53] LABS: Triiodothyronine T3 Free 0.7 pg/mL (2.3-4.2); Triiodothyronine T3 Total 27 ng/dL (76-181)
== END 2024-03-18 07:38 | disposition home or self-care (01) ==
LOC: HO.HMGCLDS 07:37
PROVIDERS: PCP Nurse Practitioner Family; Visit Provider Nurse Practitioner Family
DX: Z00.00 Encounter for general adult medical examination without abnormal findings (principal); R79.89 Other specified abnormal findings of blood chemistry
CPT/HCPCS: 36415; 80053; 80061; 81001; 84439; 84443; 84480; 84481; 85025

== ENCOUNTER 2024-03-18 16:09 | Outpatient (AMB) | payer MEDICARE, MEDICAID, SELFPAY ==
[2024-03-18 16:09] VITALS: BP 118/80; PULSE 80; TEMP 36.8; O2SAT 98; BMI 35.0
--- NOTE | 2024-03-18 16:09 | MHC.OFFWIV ---
Intake Vital Signs 03/18/24 16:09 Height 5 ft 4 in Weight 204 lb BMI 35.0 BP 118/80 Blood Pressure Location Rt brachial Position Sitting Pulse 80 Pulse Source Pulse Oximeter Temp 98.2 F Temp Source Oral Pulse Oximetry (%) 98 Intake Visit Reasons: Vomiting/ pain bloating Intake Note: pt is here for vomitting and pain and bloating Patient Tobacco Use Status: Never used Tobacco Allergies levofloxacin [From Levaquin] Allergy (Verified 03/18/24 16:11) Hives Seashell Allergy (Uncoded 01/28/24 13:51) unknown Do you need a note to return to daycare/school/sports/work: No HPI HPI Comments History of Present Illness Details 48 y/o female patient who presents to walk in clinic with c/o abfominal pain associated with nausea and vomiting x 3 days. Pt reports symptoms started 3 days ago, but today feels worse and she is unable to retain any food/drinks in her stomach. She feels weak and tired. She has been sleeping the whole day with no relief. Her PCP Romeo Rutledge ordered labs, which showed Elevated LFTs, Martina and LDL. Patient was advised to go to the Emergency Room for further evaluation. Prior h/o Cholecystectomy. Pt does admit to prior h/o Substance Use disorder (denies IV use, only Snorting). [facility] Medical History Chronic neck pain Myofascial pain Family History Father Mental health disorder Mother Mental health disorder Maternal Grandfather Mental health disorder Maternal Grandfather Mental health disorder Paternal Grandfather Mental health disorder Paternal Grandmother Mental health disorder Social History Housing: House Patient Tobacco Use Status: Never used Tobacco e-Cigarette/Vaping Use: Currently Using Second Hand Smoke Exposure: No service: No Current occupational status: employed Current occupation: [employer] Current occupational exposures/hazards: No Cognitive needs: No Hearing needs: No Vision needs: No Review of Systems Const All systems reviewed & are unremarkable except as noted in HPI and below Physical Exam Vital Signs: Last Vital Signs Temp 98.2 F 03/18/24 16:09 Pulse 80 03/18/24 16:09 BP 118/80 03/18/24 16:09 Pulse Ox 98 03/18/24 16:09 BMI result Body Mass Index 35.0 Const General: no acute distress; No comfortable Nutritional Appearance: obese Orientation/consciousness: patient oriented x3 GI Palpation (GI): Soft to palpation, not firm, Tenderness to palpation present (GI) (Generalized tenderness), no guarding, not rigid, No hepatosplenomegaly present, no hernias and no masses Auscultation: Hypoactive bowel sounds present Rectal Exam - Female: deferred Neuro General: patient oriented x3, gait normal and moves all extremities Psych Speech and movement: Normal speech and movement present Assessment & Plan Assessment & Plan (1) Elevated liver enzymes: Code(s): R74.8 - Abnormal levels of other serum enzymes Plan: Advised to go to ED for further evaluation. Pt agreed to going to ED for Evaluation. (2) Nausea and vomiting in adult: Code(s): R11.2 - Nausea with vomiting, unspecified Plan: Advised to go to ED for further evaluation. Pt agreed to going to ED for Evaluation. Coding Level of Care Code Est Pt Level 3 (33707) Diagnoses Elevated liver enzymes R74.8 Nausea and vomiting in adult R11.2 Time Spent (min) 15
== END 2024-03-18 18:12 | disposition home or self-care (01) ==
PROVIDERS: PCP Nurse Practitioner Family; Visit Provider Nurse Practitioner Family
DX: R74.8 Abnormal levels of other serum enzymes (principal); R11.2 Nausea with vomiting, unspecified
CPT/HCPCS: 99213

== ENCOUNTER 2024-04-03 11:35 | Outpatient (REF) | payer MEDICARE, MEDICAID, SELFPAY ==
[2024-04-03 13:07] LABS: MANUAL DIFF FLAG NO
[2024-04-03 13:11] LABS: Basophils Absolute Auto 0.1 X10*3/uL (0.0-0.2); Basophils Percent Auto 0.7 % (0-2); Eosinophils Absolute Auto 0.1 X10*3/uL (0.0-0.4); Eosinophils Percent Auto 1.9 % (0-4); Hematocrit 41.3 % (37.0-47.0); Hemoglobin 13.9 g/dl (12.0-16.0); Imm Gran Abs Auto 0.02 X10*3/uL (0.00-0.03); Imm Gran Pct Auto 0.3 % (0.0-0.4); Lymphocytes Absolute Auto 2.1 X10*3/uL (1.2-4.9); Lymphocytes Percent Auto 28.4 % (20-40); Mean Corpuscular HGB Conc 33.7 g/dl (31.0-35.0); Mean Corpuscular Volume 92.2 fL (80.0-98.0); Mean Platelet Volume 9.9 fL (9.4-12.3); Monocytes Absolute Auto 0.3 X10*3/uL (0.1-1.2); Monocytes Percent Auto 4.4 % (2-11); Neutrophils Absolute Auto 4.7 x10*3/uL (2.0-8.3); Neutrophils Percent Auto 64.3 % (45-73); Platelet Count 296 X10*3/uL (160-400); Red Blood Count 4.48 X10*6/uL (4.20-5.50); Red Cell Distribution Width 13.8 % (11.0-16.0); White Blood Count 7.3 X10*3/uL (4.8-10.8)
[2024-04-03 13:15] LABS: Appearance Urine Clear; Color Urine Yellow; Glucose Urine UA Negative (Negative); Leukocyte Esterase Urine Negative (Negative); Nitrite Urine Negative (Negative); Urine Blood Negative (Negative); Urine Ketones Negative (Negative); Urine Protein Negative (Neg-Trace)
[2024-04-03 13:26] LABS: Acetaminophen LAB < 3 mcg/mL (<30)
[2024-04-03 13:39] LABS: Alanine Aminotransferase 31 U/L (0-31); Albumin Level 4.6 g/dL (3.5-5.0); Alkaline Phosphatase 126 U/L (39-117); Anion Gap 13 (12-20); Aspartate Amino Transferase 27 U/L (5-31); Bilirubin Direct 0.2 mg/dL (0.0-0.5); Bilirubin Total 0.5 mg/dL (0.0-1.0); Blood Urea Nitrogen 17 mg/dL (9-16); Carbon Dioxide 27 mmol/L (22-29); Chloride 103 mmol/L (96-108); Estimated Glomerular Filt Rate 52; Glucose Random 77 mg/dL (60-115); Potassium 3.9 mmol/L (3.3-5.1); Sodium 139 mmol/L (135-145); Total Protein 8.2 g/dL (6.5-8.0)
[2024-04-03 13:44] LABS: TSH reflex Free T4 65.03 uIU/mL (0.32-4.0)
[2024-04-03 13:46] LABS: HBS Num1 29.59 mIU/mL (0-7.99); HBc Num1 0.11 S/CO (0.00-0.79); HBsAGNum1 0.27 S/CO (0.00-0.99); Hepatitis A Antibody IgM 0.27 Index (0-0.79); Hepatitis B Core Antibody Nonreactive (Nonreactive); Hepatitis B Surface Antigen Negative (Negative); ~HepC Num1 0.14 S/CO (0.00-0.79); ~Hepatitis A Antibody IgM Nonreactive (Nonreactive); ~Hepatitis B Surface Antibody REACTIVE (Nonreactive); ~Hepatitis C Antibody Nonreactive (Nonreactive)
[2024-04-03 14:30] LABS: Free T4 (Free Thyroxine) < 0.42 ng/dL (0.71-1.85)
[2024-04-06 17:18] LABS: Thyroid Peroxidase Antibodies 6 IU/mL (<9)
== END 2024-04-03 11:36 | disposition home or self-care (01) ==
LOC: HO.HMGCLDS 11:35
PROVIDERS: PCP Nurse Practitioner Family; Visit Provider Nurse Practitioner Family
DX: Z00.00 Encounter for general adult medical examination without abnormal findings (principal); R74.8 Abnormal levels of other serum enzymes; R79.89 Other specified abnormal findings of blood chemistry
CPT/HCPCS: 36415; 80053; 80143; 81003; 82248; 84439; 84443; 85025; 86376; 86704; 86706; 86709; 86803; 87340

== ENCOUNTER 2024-04-06 10:24 | Outpatient (AMB) | payer MEDICARE, MEDICAID, SELFPAY ==
--- NOTE | 2024-04-06 11:21 | AM.OFFWIN_ITS ---
Intake Vital Signs 3 04/06/24 11:23 Height 5 ft 4 in Weight 207 lb BMI 35.5 BP 122/80 Blood Pressure Location Rt brachial Position Sitting Pulse 84 Pulse Source Pulse Oximeter Temp 98.2 F Temp Source Oral Pulse Oximetry (%) 98 Oxygen Delivery Method Room Air Intake Visit Reasons: thyroid issues, can not focus Intake Note: pt c/o thyroid issues Patient Tobacco Use Status: Never used Tobacco Allergies levofloxacin [From Levaquin] Allergy (Verified 04/06/24 11:22) Hives Seashell Allergy (Uncoded 04/06/24 11:22) unknown Do you need a note to return to daycare/school/sports/work: No HPI HPI Comments 2 History of Present Illness0 Details Patient presents to the walk-in today for sick visit Endorses worsening fatigue, hair loss, dry skin, weight gain Had recent labs completed, elevated TSH with low free T4 Has follow up appointment with her primary care doctor in approximately one-week but does not want to wait that long [facility] Medical History Chronic neck pain Myofascial pain Family History Father Mental health disorder Mother Mental health disorder Maternal Grandfather Mental health disorder Maternal Grandfather Mental health disorder Paternal Grandfather Mental health disorder Paternal Grandmother Mental health disorder Social History Housing: House Patient Tobacco Use Status: Never used Tobacco e-Cigarette/Vaping Use: Currently Using Second Hand Smoke Exposure: No service: No Current occupational status: employed Current occupation: [employer] Current occupational exposures/hazards: No Cognitive needs: No Hearing needs: No Vision needs: No Review of Systems Const All systems reviewed & are unremarkable except as noted in HPI and below Physical Exam Vital Signs: Last Vital Signs Temp 98.2 F 04/06/24 11:23 Pulse 84 04/06/24 11:23 BP 122/80 04/06/24 11:23 Pulse Ox 98 04/06/24 11:23 Oxygen Delivery Method Room Air 04/06/24 11:23 BMI result Body Mass Index 35.5 General: awake, alert, oriented. Answers questions appropriately. Fully engaged in examination. Skin: warm, dry, intact HEENT: Normocephalic. Hearing intact. Cardiac: External chest normal in appearance. Respiratory: No cough, audible wheezing or stridor. Abdomen: without gross distension. MS: No obvious swelling or deformities. Neurological: Oriented to person, place, time and situation. Thought process intact. No gait abnormalities appreciated. Psychiatric: Appropriate mood and affect. Good judgment and insight. Results Reviewed Results Reviewed: Assessment & Plan Assessment & Plan (1) Hypothyroid: Code(s): E03.9 - Hypothyroidism, unspecified Plan Discussed care with patient's primary care doctor, Dr. Wills. Will start on levothyroxine 25 mcg daily Follow up with PCP as planned Return here for any new worsening symptoms Medications: New 2 levothyroxine (Synthroid) 25 mcg PO DAILY 30 tabs 0RF Coding Level of Care Code Est Pt Level 3 (34499) Diagnoses Hypothyroid E03.9
[2024-04-06 11:23] VITALS: BP 122/80; PULSE 84; TEMP 36.8; O2SAT 98; BMI 35.5
== END 2024-04-06 12:18 | disposition home or self-care (01) ==
PROVIDERS: PCP Nurse Practitioner Family; Visit Provider Registered Nurse Emergency
DX: E03.9 Hypothyroidism, unspecified (principal)
CPT/HCPCS: 99213

== ENCOUNTER 2024-04-15 08:37 | Outpatient (AMB) | payer MEDICARE, MEDICAID, SELFPAY ==
--- NOTE | 2024-04-15 08:41 | MHC.PC.OV ---
Vital Signs 04/15/24 08:42 Height 5 ft 4 in Weight 208 lb BMI 35.7 BP 128/80 Blood Pressure Location Rt brachial Position Sitting Pulse 80 Pulse Source Pulse Oximeter Pulse Oximetry (%) 98 Intake Visit Reasons: Complete PE 5 months per Intake Note: pt is here for physical exam Scales Inspector Required: No Accompanied by: Self / Same As Patient Allergies levofloxacin [From Levaquin] Allergy (Verified 04/15/24 08:42) Hives Seashell Allergy (Uncoded 04/06/24 11:22) unknown Medication List - Last Reconciled 04/15/24 by ROBINA Barrientos clonidine HCl 0.1 mg PO BID 90 days estradiol 1 mg PO DAILY famotidine (Pepcid) 20 mg PO DAILY fluoxetine 20 mg PO DAILY levothyroxine (Synthroid) 25 mcg PO DAILY multivitamin 1 tab PO DAILY ondansetron 4 mg PO Q6-8H PRN quetiapine (Seroquel) 100 mg PO BEDTIME quetiapine mg PO tramadol 25 mg (1/2 x 50 mg) PO BID PRN triamcinolone acetonide 0.1% 1 appl topical BID Tobacco use date assessed: 11/06/23 Dental Screening Dental Screen Date: 11/06/23 HPI Complete PE 5 months per HPI Details Pt is here for a PE. Labs were already performed. Due for mammo, will order. 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 Pt has a GI appointment for her colonoscopy. Pt has a hx of hypothyroid. She is taking levothyroxine 25mcg which she started about 2 weeks ago. Will repeat labs in 2 months and adjust accordingly. PFSH Medical History Chronic neck pain Myofascial pain Surgical History Hx of section Hx laparoscopic cholecystectomy H/O rotator cuff surgery S/P IVAN (total abdominal hysterectomy) Family History Father Mental health disorder Mother Mental health disorder Maternal Grandfather Mental health disorder Maternal Grandfather Mental health disorder Paternal Grandfather Mental health disorder Paternal Grandmother Mental health disorder Social History Housing: House Patient Tobacco Use Status: Never used Tobacco e-Cigarette/Vaping Use: Currently Using Second Hand Smoke Exposure: No service: No Current occupational status: employed Current occupation: [employer] Current occupational exposures/hazards: No Cognitive needs: No Hearing needs: No Vision needs: No Questionnaire PHQ-9 Over the last 2 weeks, how often have you been bothered by any of the following problems? 1. Little interest or pleasure in doing things: several days 2. Feeling down, depressed, or hopeless: not at all 3. Trouble falling or staying asleep, or sleeping too much: not at all 4. Feeling tired or having little energy: several days 5. Poor appetite or overeating: not at all 6. Feeling bad about yourself - or that you are a failure or have let yourself or your family down: not at all 7. Trouble concentrating on things, such as reading the newspaper or watching television: several days 8. Moving or speaking so slowly that other people could have noticed. Or the opposite - being so fidgety or restless that you have been moving around a lot more than usual: not at all 9. Thoughts that you would be better off or of hurting yourself in some way: not at all Total score: 3 Depression Screening Interpretation: Negative Depression Screening Done: Yes 37902 - PHQ-9 Billing: Yes Source: Developed by Drs. Jimy Carranza, Elsie Bill, Dilan Bass and colleagues, with an educational maureen from [employer]. Thrive Questionnaire Date Thrive assessed: 04/15/24 I am a: Patient What is your living situation today?: I have a steady place to live Within the past 12 months, did the food you bought not last and you didn't have the money to get more?: Never true Within the past 12 months, did you worry whether your food would run out before you got money to buy more?: Never true Do you have trouble paying for medicines?: No Do you have trouble getting transportation to medical appointments?: No Do you have trouble paying your heating and electricity bill?: No Do you have trouble taking care of your child, family member or friend?: No Do you have trouble with day-to-day activities such as bathing, preparing meals, shopping, managing finances, etc.?: No Are you currently unemployed and looking for a job?: No Are you interested in more education?: No Please select the resources that you would like help with: None Currently or been in a relationship where the following occur: No concerns reported THRIVE Score: 0 AUDIT C Alcohol Use Questionnaire (AUDIT-C) 1. How often do you have a drink containing alcohol?: Never 3. How often do you have six or more drinks on one occasion?: Never Total Score: 0 Score Reviewed/Action Taken: Yes JAIMIE-7 AMB Questionnaire JAIMIE-7 Date JAIMIE - 7 assessed: 04/15/24 Feeling nervous, anxious, or on edge: 1 = Several days Not being able to stop or control worryin = Several days Worrying too much about different things: 0 = Not at all Trouble relaxin = Not at all Being so restless that it is hard to sit still: 0 = Not at all Becoming easily annoyed or irritable: 0 = Not at all Feeling afraid as if something awful might happen: 0 = Not at all Total JAIMIE-7 score (0-4 normal; 5-9 mild; 10-14 moderate; 15-21 severe): 2 Source: Developed by Drs. Jimy Carranza, Elsie Bill, Dilan Bass and colleagues, with an educational maureen from [employer]. JAIMIE-7 Assessment Billing JAIMIE-7 Assessment Tool: JAIMIE-7 Assessment 32000 Review of Systems Const Denies chills and Denies fever(s) Eyes Denies blurry vision ENT Denies vertigo, Denies dizziness and Denies sore throat Card Denies chest pain at rest, Denies chest pain with activity, Denies diaphoresis, Denies dyspnea and Denies dyspnea on exertion Resp Denies cough, Denies dyspnea, Denies dyspnea on exertion and Denies wheezing GI Denies abdominal pain, Denies melena, Denies hematochezia, Denies constipation, Denies diarrhea and Denies loose stools Denies hematuria Musc Denies numbness and Denies tingling Skin/Breast Denies lesions Neuro Denies vertigo, Denies dizziness, Denies numbness and Denies tingling Psych Denies anxiety, Denies depression, Denies homicidal ideation, Denies suicidal ideation and Denies other (substance abuse) Aller/Immun Denies wheezing Physical exam (Primary Care) Vital Signs: Last Vital Signs Pulse 80 04/15/24 08:42 BP 128/80 04/15/24 08:42 Pulse Ox 98 04/15/24 08:42 BMI result Body Mass Index 35.7 Tobacco/Smoking Status: Tobacco use Status Tobacco use date assessed 11/06/23 04/15/24 08:44 Patient Tobacco Use Status Never used Tobacco 04/15/24 08:44 e-Cigarette/Vaping Use Currently Using 04/15/24 08:44 PHQ-9: PHQ-9 Score PHQ-9: Total score 3 04/15/24 09:06 Depression Screening Interpretation: Negative Thrive Assessment: Date of Thrive Assessment Date Thrive assessed 04/15/24 04/15/24 08:44 Currently or been in a relationship where the following occur: No concerns reported Const General: cooperative Nutritional Appearance: obese Orientation/consciousness: patient oriented x3 HENMT Head: Yes normal to inspection, Yes normocephalic and Yes atraumatic Ears: TM's normal bilaterally Eyes General: appearance normal, both eyes and all related structures Alignment and Position: alignment normal and position normal Neck Neck: Yes normal visual inspection and Yes no lymphadenopathy Thyroid: Thyroid normal Resp Effort & Inspection: normal respiratory effort Auscultation: clear to auscultation bilaterally Cardio Rate: regular rate Rhythm: regular rhythm Heart sounds: S1 normal heart sound present, S2 normal heart sound present and no murmurs GI Palpation (GI): Soft to palpation and nontender Auscultation: normal bowel sounds Skin Other: faint erythematous discoloration to face (blotchy) Neuro General: patient oriented x3, moves all extremities, no focal motor deficits and deep tendon reflexes 2+ bilaterally Romberg Test: Negative Psych Appearance: grossly normal Mental Status: mental status grossly normal Speech and movement: Normal speech and movement present Affect: normal affect Attitude: cooperative Thought process: Normal thought process present Thought content: Normal thought content present Insight: Good insight present (Psych) Judgement: Good judgement present (Psych) Assessment and Plan Assessment & Plan (1) Abnormal TSH: Code(s): R79.89 - Other specified abnormal findings of blood chemistry Plan: Repeat labs in 2 months (2) Hypothyroid: Code(s): E03.9 - Hypothyroidism, unspecified Plan: Repeat labs in 2 months Plan The patient agreed to the use of a medical referral coordinator for this encounter. Scribed for ROBINA Westbrook by Jodi Vale medical referral coordinator, on 04/15/2024 at 09:05 EST. Orders: Orders Comprehensive Met. Panel Today E03.9 - Hypothyroidism, unspecified, R79.89 - Other specified abnormal findings of blood chemistry MM screening mammo BI Today Z12.31 - Encounter for screening mammogram for malignant neoplasm of breast TSH reflex Free T4 Today E03.9 - Hypothyroidism, unspecified, R79.89 - Other specified abnormal findings of blood chemistry Medications: Changed From levothyroxine (Synthroid) 25 mcg PO DAILY 30 tabs 0RF To levothyroxine 50 mcg PO DAILY 30 days 30 tabs 2RF From levothyroxine 50 mcg PO DAILY 30 days 30 tabs 2RF To levothyroxine 25 mcg PO DAILY 30 days 30 tabs 2RF Refilled levothyroxine 50 mcg PO DAILY 30 days 30 tabs 2RF Coding Level of Care Code Est Pt Prev Care 40-64y(24948) Diagnoses Abnormal TSH R79.89 Hypothyroid E03.9 Additional Codes JAIMIE-7 Assessment Billing - JAIMIE-7 Assessment Tool: JAIMIE-7 Assessment 11636 ([id number])
[2024-04-15 08:42] VITALS: BP 128/80; PULSE 80; O2SAT 98; BMI 35.7
== END 2024-04-15 09:37 | disposition home or self-care (01) ==
PROVIDERS: PCP Nurse Practitioner Primary Care; Visit Provider Nurse Practitioner Family
DX: Z00.00 Encounter for general adult medical examination without abnormal findings (principal); R79.89 Other specified abnormal findings of blood chemistry; E03.9 Hypothyroidism, unspecified
CPT/HCPCS: 99396

== ENCOUNTER 2024-05-08 15:45 | Outpatient (REF) | payer MEDICARE, MEDICAID, SELFPAY ==
--- NOTE | ~2024-05-08 | MM_ITS ---
EXAMINATION: MM SCREENING DIGITAL BREAST TOMOSYNTHESIS, BILATERAL CLINICAL INFORMATION: Screening. Asymptomatic. COMPARISON: Mammography: This is a baseline mammogram. TECHNIQUE: Digital breast tomosynthesis is performed in both the craniocaudal and mediolateral oblique views along with computer-aided detection (CAD). Synthesized 2D images are generated from the tomosynthesis. FINDINGS: There are scattered areas of fibroglandular density (ACR BI-RADS breast composition Category b). There are no significant masses, abnormal calcifications, or other abnormalities. MM/MM tomosynthesis screening BI IMPRESSION: No mammographic evidence of malignancy. ASSESSMENT: BI-RADS BI-RADS 1 - Negative RECOMMENDATION: Routine annual mammography screening. 1 year F/U This examination should not preclude the clinical evaluation of a suspicious palpable abnormality. This patient's information was entered into a reminder system with a target due date for their next mammogram. Electronically signed by: Christine Adan MD 05/26/2024 11:22 AM EDT
== END 2024-05-08 15:46 | disposition home or self-care (01) ==
LOC: HO.MAMMO 15:45
PROVIDERS: PCP Nurse Practitioner Family; Visit Provider Nurse Practitioner Family
DX: Z12.31 Encounter for screening mammogram for malignant neoplasm of breast (principal)
CPT/HCPCS: 77063; 77067

== ENCOUNTER → 2024-05-08 16:00 | Outpatient (BNV) | payer MEDICARE, MEDICAID, SELFPAY | PROVIDERS: PCP Nurse Practitioner Family; Visit Provider Radiology Diagnostic Radiology | DX: Z12.31 Encounter for screening mammogram for malignant neoplasm of breast (principal) | CPT/HCPCS: 77063; 77067 ==

== ENCOUNTER 2024-05-27 08:25 | Outpatient (AMB) | payer MEDICARE, MEDICAID, SELFPAY ==
--- NOTE | 2024-05-27 08:38 | AM.OFFWIN_ITS ---
Intake Vital Signs 05/27/24 08:40 Height 5 ft 4 in Weight 204 lb BMI 35.0 BP 124/80 Blood Pressure Location Lt brachial Position Sitting Pulse 103 H Pulse Source Pulse Oximeter Temp 98.1 F Temp Source Oral Pulse Oximetry (%) 100 Oxygen Delivery Method Room Air Intake Visit Reasons: EP-cough, sneezing, chest & back pain Intake Note: * Patient here for cough that has been present since saturday and went to a urgent close to her home and was prescribed antibiotics which has not help. Patient Tobacco Use Status: Never used Tobacco Allergies levofloxacin [From Levaquin] Allergy (Verified 05/27/24 08:41) Hives Seashell Allergy (Uncoded 05/27/24 08:41) unknown Do you need a note to return to daycare/school/sports/work: Yes HPI HPI Comments History of Present Illness Details Patient is a 48-year-old female complaining a tickle in her throat for 5 days which turned into a cough approximately 3 days ago. She said she can not stop coughing and is not sleeping at night. She went to an urgent care 2 days ago where they gave her an allergy pill, Flonase and Tessalon Perles. She states none of it is helping despite taking it as directed. She states they did tested for COVID 2 days ago and it was negative. She states no one else at home is coughing or sick [facility], [facility] Medical History Chronic neck pain Myofascial pain Surgical History Hx of section Hx laparoscopic cholecystectomy H/O rotator cuff surgery S/P IVAN (total abdominal hysterectomy) Family History Father Mental health disorder Mother Mental health disorder Maternal Grandfather Mental health disorder Maternal Grandfather Mental health disorder Paternal Grandfather Mental health disorder Paternal Grandmother Mental health disorder Social History Housing: House Patient Tobacco Use Status: Never used Tobacco e-Cigarette/Vaping Use: Currently Using Second Hand Smoke Exposure: No service: No Current occupational status: employed Current occupation: [employer] Current occupational exposures/hazards: No Cognitive needs: No Hearing needs: No Vision needs: No Review of Systems Const All systems reviewed & are unremarkable except as noted in HPI and below Physical Exam Vital Signs: Last Vital Signs Temp 98.1 F 05/27/24 08:40 Pulse 103 H 05/27/24 08:40 BP 124/80 05/27/24 08:40 Pulse Ox 100 05/27/24 08:40 Oxygen Delivery Method Room Air 05/27/24 08:40 BMI result Body Mass Index 35.0 Const General: cooperative, healthy appearing, comfortable and no acute distress Orientation/consciousness: patient oriented x3 Limitations: no limitations HEENT Head: Yes normal to inspection Ears: hearing grossly normal bilaterally, external ears normal and TM's normal bilaterally General nose exam: Normal external nose present, Normal nares present and No nasal discharge present Face and sinus: Yes normal facial exam and Yes sinuses nontender Mouth: Normal oral and palatal mucosa present and moist mucous membranes Throat: Yes tonsils normal, Yes uvula midline and Yes posterior oropharynx abnormal (Erythema) Eyes General: appearance normal, both eyes and all related structures Neck Neck: Yes normal visual inspection Resp Effort & Inspection: normal respiratory effort, able to speak in complete sentences, Actively coughing, no respiratory distress, not tachypneic, no tripod positioning and no use of accessory muscles Auscultation: clear to auscultation bilaterally Cardio Rate: regular rate Rhythm: regular rhythm Heart sounds: normal S1 and S2 Skin General skin exam: no rashes or lesions noted Neuro General: patient oriented x3 Extrem General: Yes normal to inspection and Yes no clubbing, cyanosis or edema Assessment & Plan Assessment & Plan (1) Cough: Code(s): R05.9 - Cough, unspecified Qualifiers: Cough type: acute Qualified Code(s): R05.1 - Acute cough Plan: Recommended patient keep using her allergy pill and the Tessalon Perles. Educated patient on how to use Flonase properly and recommended she continue to use that as well. I did prescribe an inhaler with a small amount of codeine cough syrup. Recommended she try the inhaler 1st and if that does not work to use the cough syrup such that she could sleep at night but did encourage her to not take it during the day so that she could keep coughing and not have it settle into her lungs. We did send a flu COVID and RSV test as well. (2) URI (upper respiratory infection): Code(s): J06.9 - Acute upper respiratory infection, unspecified Qualifiers: URI type: unspecified URI Qualified Code(s): J06.9 - Acute upper respiratory infection, unspecified Plan: See above Plan See above Medications: New albuterol sulfate 90 mcg/actuation (Ventolin HFA) 2 puffs inhalation Q4-6H PRN 8.5 grams 0RF shortness of breath or wheezing codeine-guaifenesin 10-100 mg/5 mL 10 mL PO Q4-6H PRN 120 mL 0RF cough Coding Level of Care Code Est Pt Level 3 (80586) Diagnoses Acute cough R05.1 Cough type: acute Upper respiratory tract infection, unspecified type J06.9 URI type: unspecified URI
[2024-05-27 08:40] VITALS: BP 124/80; PULSE 103; TEMP 36.7; O2SAT 100; BMI 35.0
== END 2024-05-27 09:58 | disposition home or self-care (01) ==
PROVIDERS: PCP Nurse Practitioner Family; Visit Provider Physician Assistant
DX: R05.1 Acute cough (principal); J06.9 Acute upper respiratory infection, unspecified

== ENCOUNTER → 2024-05-27 08:25 | Outpatient (BNVA) | payer MEDICARE, MEDICAID, SELFPAY | PROVIDERS: PCP Nurse Practitioner Family | DX: R05.1 Acute cough (principal); J06.9 Acute upper respiratory infection, unspecified | CPT/HCPCS: 99212 ==

== ENCOUNTER 2024-06-19 07:59 | Outpatient (REF) | payer MEDICARE, MEDICAID, SELFPAY ==
[2024-06-19 11:03] LABS: Alanine Aminotransferase 32 U/L (0-31); Alkaline Phosphatase 148 U/L (39-117); Anion Gap 11 (12-20); Aspartate Amino Transferase 16 U/L (5-31); Bilirubin Total 0.3 mg/dL (0.0-1.0); Blood Urea Nitrogen 14 mg/dL (9-16); Calcium 8.9 mg/dL (8.4-10.2); Carbon Dioxide 28 mmol/L (22-29); Chloride 106 mmol/L (96-108); Estimated Glomerular Filt Rate > 60; Glucose Random 118 mg/dL (60-115); Potassium 4.6 mmol/L (3.3-5.1); Sodium 140 mmol/L (135-145); Total Protein 7.3 g/dL (6.5-8.0)
[2024-06-19 11:07] LABS: TSH reflex Free T4 3.44 uIU/mL (0.32-4.0)
== END 2024-06-19 08:00 | disposition home or self-care (01) ==
LOC: HO.HMGCLDS 07:59
PROVIDERS: PCP Nurse Practitioner Family; Visit Provider Nurse Practitioner Family
DX: E03.9 Hypothyroidism, unspecified (principal); R79.89 Other specified abnormal findings of blood chemistry
CPT/HCPCS: 36415; 80053; 84443

== ENCOUNTER 2024-08-18 11:17 | Outpatient (REF) | payer MEDICARE, MEDICAID, SELFPAY ==
[2024-08-18 13:02] LABS: MANUAL DIFF FLAG NO
[2024-08-18 13:09] LABS: Basophils Percent Auto 0.4 % (0-2); Eosinophils Absolute Auto 0.2 X10*3/uL (0.0-0.4); Eosinophils Percent Auto 2.2 % (0-4); Hematocrit 39.6 % (37.0-47.0); Hemoglobin 13.1 g/dl (12.0-16.0); Imm Gran Abs Auto 0.03 X10*3/uL (0.00-0.03); Imm Gran Pct Auto 0.4 % (0.0-0.4); Lymphocytes Absolute Auto 2.7 X10*3/uL (1.2-4.9); Lymphocytes Percent Auto 34.2 % (20-40); Mean Corpuscular HGB Conc 33.1 g/dl (31.0-35.0); Mean Corpuscular Hemoglobin 30.6 pg (27.0-33.0); Mean Corpuscular Volume 92.5 fL (80.0-98.0); Mean Platelet Volume 9.4 fL (9.4-12.3); Monocytes Absolute Auto 0.5 X10*3/uL (0.1-1.2); Monocytes Percent Auto 6.7 % (2-11); Neutrophils Absolute Auto 4.4 x10*3/uL (2.0-8.3); Neutrophils Percent Auto 56.1 % (45-73); Platelet Count 273 X10*3/uL (160-400); Red Blood Count 4.28 X10*6/uL (4.20-5.50); Red Cell Distribution Width 12.5 % (11.0-16.0); White Blood Count 7.9 X10*3/uL (4.8-10.8)
[2024-08-18 13:32] LABS: Anion Gap 13 (12-20)
[2024-08-18 13:35] LABS: Albumin Level 3.9 g/dL (3.5-5.0); Aspartate Amino Transferase 31 U/L (5-31); Bilirubin Total 0.5 mg/dL (0.0-1.0); Blood Urea Nitrogen 14 mg/dL (9-16); Calcium 9.4 mg/dL (8.4-10.2); Carbon Dioxide 28 mmol/L (22-29); Chloride 103 mmol/L (96-108); Estimated Glomerular Filt Rate > 60; Gamma Glutamyl Transpeptidase 542 U/L (7-33); Glucose Random 89 mg/dL (60-115); Potassium 4.5 mmol/L (3.3-5.1); Sodium 139 mmol/L (135-145)
[2024-08-18 14:02] LABS: Alanine Aminotransferase 54 U/L (0-31); Alkaline Phosphatase 124 U/L (39-117)
[2024-08-24 23:32] LABS: Alk.Phos Iso. Macrohepatic 0 % (<=0); Alk.Phos Isoenzymes Bone 30 % (28-66); Alk.Phos Isoenzymes Intest 0 % (1-24); Alk.Phos Isoenzymes Liver 70 % (25-69); Alk.Phos Isoenzymes Placental 0 % (<=0); Alk.Phos Isoenzymes Total 126 U/L (31-125)
== END 2024-08-18 11:18 | disposition home or self-care (01) ==
LOC: HO.HMGCLDS 11:17
PROVIDERS: PCP Nurse Practitioner Family; Visit Provider Nurse Practitioner Family
DX: R74.8 Abnormal levels of other serum enzymes (principal)
CPT/HCPCS: 36415; 80053; 82977; 84080; 85025

== ENCOUNTER 2024-12-29 09:14 | Outpatient (AMB) | payer MEDICARE, MEDICAID, SELFPAY ==
--- NOTE | 2024-12-29 09:18 | AM.OFFWIN_ITS ---
Intake Vital Signs 12/29/24 09:26 Weight 223 lb 2 oz BP 126/74 Blood Pressure Location Rt brachial Position Sitting Pulse 86 Pulse Source Pulse Oximeter Pulse Oximetry (%) 98 Oxygen Delivery Method Room Air Intake Visit Reasons: EP-joint pain Patient Tobacco Use Status: Never used Tobacco Allergies levofloxacin [From Levaquin] Allergy (Verified 05/27/24 08:41) Hives Seashell Allergy (Uncoded 05/27/24 08:41) unknown Do you need a note to return to daycare/school/sports/work: No HPI HPI Comments History of Present Illness Details History of Present Illness - The patient is a 49 year old female pr esenting with joint pain and thyroid dysfunction. - Onset of joint pain was in early the m onth and affects all joints, particularly during physical activities, worse when going up stairs. - Initially believed pain was due to lug nick handling but persisted in nature. - Tramadol has been used previously but deemed ineffective, leading the patient to pursue laboratory testing. - Thyroid dysfunction noted through inte rmittent use of thyroid medication, causing jitteriness, leading to self-regulation of dosage. - Previous laboratory results indicated elevated TSH levels, reflecting subclinical hypothyroidism. - The patient has a background of rotato r cuff repair, influencing pain perception and prior tramadol use. - Pt was in [place] with family who are [facility] providers and they ordered thyroid testing for her, results are as follows; 12/09/24 labs done in [place] TSH 9.2 High T4 5.1 WNL T-uptake 24.3 WNL Thyroid binding capacity 1.3 WNL Physical Exam General: Cooperative, healthy appearing, comfortable, no acute distress and well developed Orientation: Patient oriented x3 Limitations: Reports joint pain Head: Normal to inspection Ears: Hearing grossly normal bilaterally Nose: Normal External nose present Face and sinus: Normal facial exam Eyes: Appearance normal, both eyes and all related structures Neck: Normal visual inspection and Yes full ROM Respiratory: Normal respiratory effort and able to speak in complete sentences. Skin: No rashes or lesions noted Neuro: Patient oriented x3 Extremities: Normal to inspection [facility] Medical History Chronic neck pain Myofascial pain Surgical History Hx of section Hx laparoscopic cholecystectomy H/O rotator cuff surgery S/P IVAN (total abdominal hysterectomy) Family History Father Mental health disorder Mother Mental health disorder Maternal Grandfather Mental health disorder Maternal Grandfather Mental health disorder Paternal Grandfather Mental health disorder Paternal Grandmother Mental health disorder Social History Housing: House Patient Tobacco Use Status: Never used Tobacco e-Cigarette/Vaping Use: Currently Using Second Hand Smoke Exposure: No service: No Current occupational status: employed Current occupation: [employer] Current occupational exposures/hazards: No Cognitive needs: No Hearing needs: No Vision needs: No Review of Systems Const All systems reviewed & are unremarkable except as noted in HPI and below Physical Exam Vital Signs: Last Vital Signs Pulse 86 12/29/24 09:26 BP 126/74 12/29/24 09:26 Pulse Ox 98 12/29/24 09:26 Oxygen Delivery Method Room Air 12/29/24 09:26 Assessment & Plan Assessment & Plan (1) Hypothyroid: Code(s): E03.9 - Hypothyroidism, unspecified Qualifiers: Hypothyroidism type: unspecified Qualified Code(s): E03.9 - Hypothyroidism, unspecified Plan: The patient will address the ongoing joint pain by reassessing current medication efficacy, noting the ineffectiveness of tramadol for generalized joint pain. A monitored course of thyroid dysfunction management will continue, focusing on consistent daily administration of thyroid medication to rectify elevated TSH levels indicative of subclinical hypothyroidism. I have messaged her PCP to order TSH with reflex to T4 for February 08. Laboratory testing is set for early February to review thyroid functionality and adjust treatment plans based on results. Continued evaluation following consistent thyroid medication use is critical to determine appropriate dosage adjustments and broader health impacts. Patient was informed and verbally consented to the use of an ambient scribe for clinic note documentation during this visit. Coding Level of Care Code Est Pt Level 3 (51330) Diagnoses Hypothyroidism, unspecified type E03.9 Hypothyroidism type: unspecified
[2024-12-29 09:26] VITALS: BP 126/74; PULSE 86; O2SAT 98
--- OUTSIDE RECORDS SUMMARY | 2024-12-29 09:55 | XMS_ITS | Clinical Summary ---
Author Organization Patient Business Ser [facility] Address [address] [place] [address] Care Team Providers Care Oceanographic Meteorologist Name Role Phone Physician, Pcp Unknown Primary Care Provider Celia vailable Allergies Active Allergy Reactions Criticality Noted Date Comments Levofloxacin Swelling High 08/20/2014 Shrimp Anaphylaxis High 05/07/2014 Medications estradioL (ESTRACE) 1 mg tablet Take 0.5 mg by mouth 1 (one) time each day. 4 Active triamcinolone acetonide (KENALOG-40) 40 mg/mL injection Inject 1 mL (40 mg total) into the joint 1 (one) time. 3 Active traMADoL (ULTRAM) 50 mg tablet Take 1 tablet (50 mg total) by mouth 1 (one) time each day. Max Daily Amount: 50 mg 3 Active pregabalin (LYRICA) 25 mg capsule Take 2 capsules (50 mg total) by mouth 1 (one) time each day. Max Daily Amount: 50 mg 6 Active albuterol HFA (ProAir HFA) 90 mcg/actuation inhaler Take 2 puffs by mouth every 4 (four) hours if needed. 6 Active ranitidine HCl (ZANTAC 150 EFFERDOSE ORAL) Take 150 mg by mouth. 6 Active fluticasone propionate (FLONASE) 50 mcg/actuation nasal spray Administer 1 spray into each nostril 1 (one) time each day. 6 Active diclofenac (VOLTAREN) 50 mg EC tablet Take 1 tablet (50 mg total) by mouth 2 (two) times a day if needed. 6 Active QUEtiapine (SEROquel) 200 mg tablet Take 2 tablets (400 mg total) by mouth at bedtime. Active DULoxetine (CYMBALTA) [address] capsule Take 1 capsule (30 mg total) by mouth. Active DULoxetine (CYMBALTA) [address] capsule Take 1 capsule (60 mg total) by mouth. Active clonazePAM (KlonoPIN) 1 mg tablet Take 1 tablet (1 mg total) by mouth 1 (one) time each day. Max Daily Amount: 1 mg Active levothyroxine sodium (SYNTHROID ORAL) Take by mouth. Activ e Active Problems Problem Noted Date Diagnosed Date Fibromyalgia 10/31/2015 Elevated white blood cell count 08/28/2015 Asthma 08/25/2015 Depression 08/25/2015 Overview (04/24/2024): [facility] prescribing Common bile duct dilation 06/01/2014 Overview (04/24/2024): 05/23 liver u/s, also showing mild hepatomegaly and fatty liver Chronic pain 05/07/2014 Tobacco use disorder 05/07/2014 Overview (04/24/2024): Chantix not helpful; wellbutrin GI SEs Nephrolithiasis 04/30/2014 Overview (04/24/2024): On CT 04/22 Opiate dependence (CMS/HCC V24, CMS/HCC V28) Overview (04/24/2024): Previously prescribed at [facility]; apparently told Dr Dominugez that she tapered off oxycodone and flushed the remaining medication, however PM&R notes indicate that the patient's rx was discontinued after she reported lost meds; initial rx started after she stated she took someone else's oxycodone . [facility] 08/22 - reported taking 150-200mtg oxoycodone daily, withdrawal Encounters Date Type Department Care Team Description 09/30/2024 9:30 AM EST Office Visit Orthopedic Surgery - [place] [address] [facility] [address] [place] [address] Rudolph Davis MD Post-operative state (Primary Dx); S/P rotator cuff repair from Last 3 Months Immunizations Name Administration Dates Next Due Td Tetanus diptheria (Tdvax) 7yo and older 03/21 Tdap Tetanus diptheria acell ular pertussis (Boostrix; Adacel) 7yo and older 02/11/2009 Surgical History Surgery Date Site/Laterality Comments CHOLECYSTECTOMY 04/09/2014 PROCEDURE: HISTORICAL CHOLECYSTECTOMY SECTION 1994, 1997, 2001 PROCEDURE: HISTORICAL DELIVERY ROTATOR CUFF REPAIR 01/31/2023 Left PROCEDURE: HISTORICAL ROTATOR CUFF REPAIR; COMMENT: Left shoulder rotator cuff repair and augmentation. Subacromial decompression. Labral debridement Family History Medical History Relation Name Comments Breast cancer Aunt 1 Thyroid disease Mother's side 1 Coronary artery disease Neg Hx Diabetes Neg Hx Hypertension Neg Hx Relation Name Status Comments Aunt 1 Aunt 2 Mother Alive Mother's side 1 Mother's side 2 Social History Tobacco Use Types Packs/Day Years Used Date Smoking Tobacco: Every Day Smokeless Tobacco: Never Alcohol Use Standard Drinks/Week Comments No 0 (1 standard drink = 0.6 oz pur e alcohol) Comments Unknown Sex and Gender Information Value Date Recorded Sex Assigned at Not on file Legal Sex Female 3:10 PM EST Gender Identity Not on file Sexual Orientation Not on file Obstetrics History Last Filed Vital Signs Vital Sign Reading Time Taken Comments Blood Pressure - - Pulse - - Temperature - - Respiratory Rate - - Oxygen Saturation - - Inhaled Oxygen Concentration - - Weight 98.9 kg (218 lb) 09/30/2024 9:49 AM EST Height 162.6 cm (5' 4.02 ) 09/30/2024 9:49 AM ES T Body Mass Index 37.4 09/30/2024 9:49 AM EST Plan of Treatment Health Maintenance Due Date Last Done Comments Breast Cancer Screening 1976 Hepatitis B Vaccines (1 of 3 - 19+ 3-dose series) 1995 Pneumococcal Vaccine: Pediatrics (0 to 5 Years) and At-Risk Patients (6 to 64 Years) (1 of 2 - PCV) 1995 Cervical Cancer Screening: P ap Smear 01/22/2015 01/23/2012 DTaP,Tdap,and Td Vaccines (3 - Td or Tdap) 03/21/2020 03/21/2010, 02/11/2009 Cholesterol Screening (Lipid Panel) 04/02/2023 08/25/2015 Colorectal Cancer Screening: Colonoscopy 04/02/2023 Depression Screening 04/02/2023 Medicare Annual Wellness Visit 04/02/2023 Social Influencers of Health Screening 04/02/2023 COVID-19 Vaccine (2023-2 5 season) 2024 Influenza Vaccine (Season Ended) 2025 HIV Screening Completed 08/25/2015 Hepatitis C Screening Completed 08/25/2015 HIB Vaccines Aged Out No longer eligi ble based on patient's age to complete this topic HPV Vaccines Aged Out No longer eligi ble based on patient's age to complete this topic Hepatitis A Vaccines Aged Out No long er eligible based on patient's age to complete this topic IPV Vaccines Aged Out No longer eligi ble based on patient's age to complete this topic MMR Vaccines Aged Out No longer eligi ble based on patient's age to complete this topic Meningococcal ACWY Vaccine Aged Out N o longer eligible based on patient's age to complete this topic Meningococcal B Vaccine Aged Out No l onger eligible based on patient's age to complete this topic RSV Immunization Patients Under 20 months Aged Out No longer eligible b ased on patient's age to complete this topic Varicella Vaccines Aged Out No longer eligible based on patient's age to complete this topic Procedures Procedure Name Priority Date/Time Associated Diagnosis Comments XR SHOULDER 2+ VIEWS LEFT Routine 09/30/2024 9:55 AM EST Post-operative state HEPATITIS C SCREENING Routine 08/25/2015 HIV SCREENING Routine 08/25/2015 LIPID PANEL Routine 08/25/2015 PAP SMEAR Routine 01/23/2012 from Last 3 Months or Most Recently Relevant to Health Maintenance Results * XR Shoulder 2+ Views Left (09/30/2024 9:55 AM EST) Anatomical Region Laterality Modality Upper Extremities, Shoulder Left Comp uted Radiography Narrative 09/30/2024 10:03 AM EST Left shoulder x-rays September 30, 2024. ??AP, Grashey, Y lateral, axillary views. ??No significant interval changes since previous x-rays. ??Surgical changes as noted previously. ??Significant signs of DJD. ??No acute osseous abnormalities. Result [facility] Rudolhp Davis MD IMG XR PROCEDURES Final Result * HIV Screening (08/25/2015) [facility] HIV Screening abstracted Result [facility] Historical Provider HEALTH MAINTENANCE Final Result * Hepatitis C Screening (08/25/2015) [facility] Hepatitis C Screening abstracted Result [facility] Historical Provider HEALTH MAINTENANCE Final Result * (ABNORMAL) Lipid panel (08/25/2015) [facility] LDL/HDL Ratio 5(A) <=4 Triglycerides 172(A) <=150 mg/dL Cholesterol 201(A) <=200 mg/dL HDL 39(A) >=40 mg/dL LDL Cholesterol 128(A) <=100 mg/dL Blood Venous blood specimen / Unknown Result [facility] Historical Provider LAB BLOOD ORDERABLES Lida l Result * Pap Smear (01/23/2012) [facility] Pap smear no interpretation , abstracted Result [facility] Historical Provider HEALTH MAINTENANCE Final Result from Last 3 Months or Most Recently Relevant to Health Maintenance Insurance MEDICA[place] - [place] MEDICARE Care Teams Oceanographic Meteorologist Relationship Specialty Start Date End Date Physician, Pcp Unknown PCP - General 09/23/24
--- OUTSIDE RECORDS SUMMARY | 2024-12-29 09:55 | XMS_ITS | Data Portability ---
Author Organization [place] - [facility] deanna, GREG, Main Office - [facility] Address [address] [place] [address] Care Team Providers Care Supervisor Coremaker Name Role Phone ANGELITA PEREZ Primary Care Provider Assessment No assessment recorded. Plan of Treatment Reminders Order Date Submit Date Provider Last Modified By Organization Details Last Modified Time Details Appointments None recorded. Lab None recorded. Referral None recorded. Procedures None recorded. Surgeries None recorded. Imaging electromyog astrid + nerve conduction study - EMG, Bilateral UE 2020 021 [email or web address] Not available 11:21:19 Medication Orders None recorded. Patient TargetsNo targets recorded. 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 Symptoms for a total of 10 years much worse over the past 2 months. She has classic nocturnal symptoms. Her numbness is not in any particular distribution. CTS 6 is less than 12. She has no sign of lacertus syndrome. I reviewed electrodiagnostic studies from 05/01/2021. They show mild left carpal tunnel and mild right cubital tunnel. However I think her diagnosis could be consistent with bilateral carpal and/or cubital tunnel. I measured her cross-sectional area of the median nerve on the right it was only 8 millimeters squared. I do not think heard diagnoses are clear. I would like to repeat her electrodiagnostic studies Ultrasound examination right wrist for measurement cross-sectional area median nerve: I personally performed this procedure. FCR tendon and median nerve identified. The nerve looked normal. Eight mm2. This encounter was completed with the assistance of voice recognition software. Interpretive errors may exist that were not detected at the time of review and sign off and may be subject to subsequent amendment. [email or web address] Not available 07/14/2021 09:28:59 2021 [id number] nonspecific bila teral upper extremity symptoms in a patient with fibromyalgia. Electrodiagnostic studies were completely normal. At this time she is really having very minimal symptoms. No further treatment needed Fibromyalgia: She takes gabapentin and diclofenac. I will defer all of that to her PCP and or whoever is treating her fibromyalgia. This encounter was completed with the assistance of voice recognition software. Interpretive errors may exist that were not detected at the time of review and sign off and may be subject to subsequent amendment. [email or web address] Not available 2021 13:25:39 Reason for Referral None Reported. Results Created Date Observation Date Name Description Value Unit Range Abnormal Flag Note LastModifiedBy Organization Detail LastModifiedTime 07/25/20 elect romyo gram + nerve condu ction study No observ ation record ed. [email or web address] Not Available 2020 13:25:06 08/24/20 21 05/01/2021 elect romyo gram + nerve condu ction study No observ ation record ed. BARCODE Not Available 2020 11:21:19 Result Notes None recorded. Procedures Surgical History Date Name Laterality Status Provider Name and Address Organization Details Recorded Time 07/14/20 ULTRASOUND DIAGNOSTIC (LIMITED) completed Rene Rice MD [address] [place], [address], [facility] 07/14/2021 09:24:13 cholecystectomy completed [facility] 07/14/2021 08:23:08 completed [facility] 07/14/2021 08:23:17 Imaging Results Imaging Date Name Status LastModified by Organization Details LastModified Time 2021 electromyogram + nerve conduction study completed [email or web address] Information not available 2021 13:25:06 05/01/2021 electromyogram + nerve conduction study completed [facility] Information not available 08/24/2021 11:21:19 Procedure Notes None recorded. Medical Equipment None Reported. Allergies Allergen ID Allergen Name Allergen Category Reaction Reaction Severity Criticality Documentation Date Start Date Code Code System Note Provider Name and Address Organization Details Recorded Time 387166 Levaquin medicatio n Not available Not available Not available 07/14/2021 38219 2 RxNorm Not Available Not Available Not Available Medications Name Sig Start Date Stop Date Status Note LastModified by Organization Details LastModified Time cyclobenzap rine 10 mg tablet TAKE 1 TABLET BY MOUTH EVERY DAY AT BEDTIME NEEDED active Not Available Not Available No t Available clonidine HCl 0.1 mg tablet TAKE 1 TABLET BY MOUTH TWICE DAILY active Not Available Not Available No t Available quetiapine 300 mg tablet TAKE 1 TABLET BY MOUTH AT BEDTIME active Not Available Not Available No t Available ibuprofen 800 mg tablet TAKE 1 TABLET BY MOUTH THREE TIMES DAILY active Not Available Not Available No t Available tramadol 50 mg tablet 07/14 completed Not Available Not Available Not Available triamcinolo ne acetonide 0.1 % topical cream APPLY TOPICALLY TO AFFECTED AREA EVERY DAY 07/14 completed Not Available Not Available Not Available meloxicam 7.5 mg tablet TAKE 1 TABLET BY MOUTH DAILY TAKE WITH FOOD active Not Available Not Available No t Available trazodone 100 mg tablet TAKE 1 TABLET BY MOUTH AT BEDTIME 07/14 completed Not Available Not Available Not Available benzonatate 100 mg capsule TAKE ONE TO TWO CAPSULES BY MOUTH THREE TIMES A DAY NEEDED 07/14 completed Not Available Not Available Not Available gabapentin 300 mg capsule active Not Available Not Available Not Available diclofenac sodium 50 mg tablet,jose guadalupe yed release active Not Available Not Available Not Available naproxen 500 mg tablet TAKE 1 TABLET BY MOUTH EVERY 12 HOURS WITH FOOD OR MILK NEEDED 07/14 completed Not Available Not Available Not Available quetiapine 50 mg tablet TAKE 1/2 TO 1 TABLET BY MOUTH TWICE DAILY FOR ANXIETY active Not Available Not Available No t Available Moderna COVID-19 Vaccine (EUA) active 2020 Not Available Not Available Not Available Vitals Date Recorded Body weight Body mass index (BMI) Body height Body temperature Heart rate Systolic blood pressure Diastolic blood pressure Provider Name and Address Organization Details Last Updated DateTime 93339.7 3 g 34.1 kg/m2 162.56 cm 98.3 [degF] 88 /min 128 mm[Hg] 80 mm[Hg] Cyril Aquino [place] [facility], 08:26:31 Social History Question Answer Notes LastModified by Organizat ion Details LastModified Time Do You Have An Advance Directive? No [email or web address] Information n ot available 07/14/2021 What Is Your Level Of Alcohol Consumption? Occasional [email or web address] Information not available 07/14/2021 Is Blood Transfusion Acceptable In An Emergency? Yes Information not available 07/14/2021 In The 14 Days Before Symptom Onset, Have You Had Close Contact With A Laboratory-confirm ed COVID-19 While That Case Was Ill? No Information n ot available 07/14/2021 In The 14 Days Before Symptom Onset, Have You Had Close Contact With A Person Who Is Under Investigation For COVID-19 While That Person Was Ill? No [email or web address] Information not available 07/14/2021 Have You Been To An Area Known To Be High Risk For COVID-19? No [email or web address] Information not available 07/14/2021 Are You Currently Employed? No Information not available 07/14/2021 What Is The Highest Grade Or Level Of School You Have Completed Or The Highest Degree You Have Received? [id number] [email or web address] Information not available 07/14/2021 Which Of Your Hands Is Dominant? Right [email or web address] Information n ot available 07/14/2021 How Many Children Do You Have? 4 [email or web address] Information not available 07/14/2021 What Is Your Relationship Status? Information not available 07/14/2021 Are You Passively Exposed To Smoke? No [email or web address] Information no t available 07/14/2021 Do You Feel Stressed (tense, Restless, Nervous, Or Anxious, Or Unable To Sleep At Night)? [id number] [email or web address] Information not available 07/14/2021 Do You Use Any Illicit Or Recreational Drugs? No [email or web address] Information not available 07/14/2021 Do You Or Have You Ever Used Any Other Forms Of Tobacco Or Nicotine? No [email or web address] Information not available 07/14/2021 Sex: Unknown Functional Status Question Answer Note LastModified by Organization D etails LastModified Time Are you able to care for yourself? Yes [email or web address] Information not available 07/14/2021 What is your exercise level? Moderate Information not available 07/14/2021 Mental Status None recorded. Family History Nothing Reported Notes:updated...07/14/2021... CCW Medical History Condition Response Pancreatitis N HEME - Anemia N Gout N Hyperthyroidism N Rheumatoid arthritis N Irritable bowel syndrome N Osteoarthrosis N HEENT - Wears corrective lenses Y Depression N COPD N Pneumonia N History of head and neck tumor N Peptic ulcer disease N NEURO - Cerebral palsy N Skin infection N Active aids N Mitral valve prolapse N Renal failure N HIV positive N GI - GERD N Joint injury N Hypercholesterolemia N Hypoparathyroidism N MS - Fracture N Fibromyalgia Y Cerebrovascular accident N Neuromuscular disease N PSYCHE - Claustrophobia N Poliomyelitis / post polio N ENDOCRINE - Obesity N Hearing impairment N Dysvascular amputation LE N Other diagnosis N Anxiety disorder Y Deformity N CHEST - Sleep apnea N Crohn's disease N Pulmonary embolism N Chronic venous stasis disease N Psychosis N Coagulopathy N Asthma N Blood clotting disorder N Cardiac valvular disease N Are you under pain mgmt treatment N Fragility fracture N Vertigo N Hepatitis N Neuropathy Y Coronary artery disease N Pressure sore N Diabetes Type II (NIDDM) N Skin ulceration N Bipolar disorder Y Glaucoma N Legally blind N Hypothyroidism N Sinusitis / sinus infection N Pacemaker N Peripheral vascular disease N Cystic fibrosis N Cholecystitis N Sickle cell N VASCULAR - Deep venous thrombosis N Osteomyelitis N SKIN - Rash N INFECTIOUS - Current active infection N Diabetic Monitor N Heart murmur N Previous myocadial infarction N Itp / ttp N Lupus Arthritis N Congestive heart failure N Skin bruising N Diabetes Type I (IDDM) N HEART - Arrhythmia N Chemically anticoagulated N Dental caries / gingivitis N Fracture non-union N Dysvascular gangrene N - Cystitis N Renal dialysis N Diverticulitis N Dementia N Ulcerative colitis N Seizure disorder N MISC - Cancer N Organ transplant N Hypertension N Osteoporosis N Gynecological HistoryNo gynecological history recorded. Obstetrics History GPAL:G 0 P 0 0 0 0 Past Encounters Encounter ID Performer Location Encounter Start Date Encounter Closed Date Diagnosis/Indication Diagnosis SNOMED-CT Code Diagnosis ICD10 Code Diagnosis Note [id number] Rene Rice MD Main Office - [address] [address] 07/14/2021 07:50:25 07/14/2021 09:55:19 Numbness of hand 799492414 R20.0 [id number] Rene Rice MD Main Office - [address] [address] 2021 12:43:25 2021 13:21:53 Numbness of hand 156113766 R20.0 [facility] [id number] M 79.7 Health Concerns Section Related Observation LastModified by Organization Detai ls LastModified Time None Recorded Concern Status LastModified by Organization Details LastModified Time None Recorded Advance Directives Directive N: Payers Encounter Date Sequence Insurance Name Policy Number Policy Bishop Covered Member ID Bishop Member ID Guarantor Name 07/14/2021 1 [place] Amy Tomsaa [id number] Amy Tomasa 2021 1 [place] Amy Tomasa [id number] Amy Tomasa Notes Date Note Type Note Provider Name and Address Organization Details Recorded Time 07/14/2021 text/html Wrist/HandReport ed bypatient.Locati on:bilateral (hands) Quality:aching; worsening Severity:moderat e Timing:nighttime Context:cannot identify Aggravating Factors:gripping ; grasping; squeezing Associated Symptoms:no weakness; no numbness; no tingling; no swelling; no redness; no warmth; no ecchymosis; no catching/locking ; no popping/clicking ; no buckling; no grinding; no instability; no radiation; no drainage; no fever; no chills; no weight loss; no change in bowel/bladder habits Prior Imaging:EMG Previous Injections:none Previous PT:none Work Related:no Rene Rice MD [address] [place] [address], [phone], [facility], 07/14/2021 14:27:14 2021 text/html Patient here today for follow up after EMG that was performed today, 07/25/21. Rene Rice MD [address] [place] [address], [phone], [facility], 07/28/2021 16:04:12 OBGyn Episode No OBEpisode recorded.
== END 2024-12-29 11:53 | disposition home or self-care (01) ==
PROVIDERS: PCP Nurse Practitioner Family; Visit Provider Physician Assistant
DX: E03.9 Hypothyroidism, unspecified (principal)

== ENCOUNTER → 2024-12-29 09:14 | Outpatient (BNVA) | payer MEDICARE, MEDICAID, SELFPAY | PROVIDERS: PCP Nurse Practitioner Family; Visit Provider Physician Assistant | DX: E03.9 Hypothyroidism, unspecified (principal) | CPT/HCPCS: 99212 ==

== ENCOUNTER 2025-01-04 13:28 | Outpatient (AMB) | payer MEDICARE, MEDICAID, SELFPAY ==
--- NOTE | 2025-01-04 13:31 | MHC.OFFVIS ---
Vital Signs 01/04/25 13:36 Height 5 ft 4 in Weight 220 lb 7.396 oz BMI 37.8 BP 135/74 Blood Pressure Location Lt brachial Position Sitting Pulse 84 Intake Visit Reasons: elevated lft Intake Note: Amy presents in the office as a new patient for Elevated LFT. CC: She states she is having a big issue with her weight being so much. She states her liver labs have always been up and down due to the seroquil and in she had an OD on tylenol. [employer] Program Coordinator Required: No Allergies levofloxacin [From Levaquin] Allergy (Verified 01/04/25 13:36) Hives Seashell Allergy (Uncoded 01/04/25 13:36) unknown HPI Comments Details: 49 y.o F with past medical history of obesity, hypothyroidism, chronic pain, who has been referred to our office for elevated LFTs. She reports no abdominal pain, nausea, vomiting. No recent changes in medication. Zepbound prescribed, but has not started it yet. Labs reviewed, has had longstanding elevation of alk-phos. In March 2024, also had overuse of Tylenol unintentionally for shoulder pain that spiked her LFTs at that time. More recently, also has had elevated ALT, but again alk-phos has remained disproportionately high. No family history of liver disease. Patient does not drink. No current or previous history of drug use. Hepatitis serology negative. Laboratory Tests 04/21/19 04/03/24 06/19/24 12:17 11:40 08:02 Alkaline Phosphatase 170 H 126 H 148 H GGT ALT 32 H Alk Phos Iso-Liver 08/18/24 11:44 Alkaline Phosphatase 126 H GGT 542 H ALT 54 H Alk Phos Iso-Liver 70 H PFSH Medical History (Updated 01/04/25 @ 14:28 by Vanessa Herr MD) Failure of rotator cuff repair Chronic neck pain Myofascial pain Surgical History Hx of section Hx laparoscopic cholecystectomy H/O rotator cuff surgery S/P IVAN (total abdominal hysterectomy) Family History Father Mental health disorder Mother Mental health disorder Maternal Grandfather Mental health disorder Maternal Grandfather Mental health disorder Paternal Grandfather Mental health disorder Paternal Grandmother Mental health disorder Social History Housing: House Patient Tobacco Use Status: Never used Tobacco e-Cigarette/Vaping Use: Currently Using Second Hand Smoke Exposure: No service: No Current occupational status: employed Current occupation: [employer] Current occupational exposures/hazards: No Cognitive needs: No Hearing needs: No Vision needs: No Physical Exam Vital Signs: Last Vital Signs Pulse 84 01/04/25 13:36 BP 135/74 01/04/25 13:36 BMI result Body Mass Index 37.8 No apparent distress Nonicteric Abdomen soft, nondistended Alert and oriented x3, normal gait Assessment & Plan Assessment & Plan (1) Elevated serum gamma-glutamyl transferase level: Code(s): R74.8 - Abnormal levels of other serum enzymes Category: Medical (2) Elevated alkaline phosphatase level: Code(s): R74.8 - Abnormal levels of other serum enzymes Category: Medical (3) Elevated liver enzymes: Code(s): R74.8 - Abnormal levels of other serum enzymes Category: Medical (4) Obesity: Code(s): E66.9 - Obesity, unspecified Category: Medical Plan Differentials include autoimmune hepatitis, PSC, PBC, fatty liver, iron overload. Plan: -labs ordered -ultrasound abdomen ordered -further management will depend on underlying etiology of chronic liver disease Follow-up after 4 months (as per patient's preference, she is going to stay with her ill father in [place] for a few months) Orders: Orders Complete Blood Count no Diff Today R74.8 - Abnormal levels of other serum enzymes TSH reflex Free T4 Today R74.8 - Abnormal levels of other serum enzymes Immunoglobulin G Today R74.8 - Abnormal levels of other serum enzymes IRON PROFILE Today R74.8 - Abnormal levels of other serum enzymes Liver Kidney Microsomal Ab Today R74.8 - Abnormal levels of other serum enzymes Phosphatidylethanol, Blood Today R74.8 - Abnormal levels of other serum enzymes Hemoglobin A1c Today R74.8 - Abnormal levels of other serum enzymes Ceruloplasmin Today R74.8 - Abnormal levels of other serum enzymes Alpha 1 Anti-trypsin Today R74.8 - Abnormal levels of other serum enzymes US abdomen complete Today R74.8 - Abnormal levels of other serum enzymes Comprehensive Met. Panel Today R74.8 - Abnormal levels of other serum enzymes Prothrombin Time INR Today R74.8 - Abnormal levels of other serum enzymes Transglutaminase IgA Today R74.8 - Abnormal levels of other serum enzymes Immunoglobulin A Today R74.8 - Abnormal levels of other serum enzymes Ferritin Today R74.8 - Abnormal levels of other serum enzymes Mitochondrial Antibody Today R74.8 - Abnormal levels of other serum enzymes Smooth Muscle Antibody Today R74.8 - Abnormal levels of other serum enzymes Lipid Panel Today R74.8 - Abnormal levels of other serum enzymes HIV Ab/Ag Today R74.8 - Abnormal levels of other serum enzymes Alpha Fetoprotein Today R74.8 - Abnormal levels of other serum enzymes Coding Level of Care Code New Pt Level 4 (30949) Diagnoses Elevated serum gamma-glutamyl transferase level R74.8 Elevated alkaline phosphatase level R74.8 Elevated liver enzymes R74.8 Obesity E66.9
[2025-01-04 13:36] VITALS: BP 135/74; PULSE 84; BMI 37.8
--- OUTSIDE RECORDS SUMMARY | 2025-01-04 16:04 | XMS_ITS | Clinical Summary ---
Author Organization Patient Business Ser [facility] Address [address] [place] [address] Care Team Providers Care C Software Developer Name Role Phone Physician, Pcp Unknown Primary [...] CMS/HCC V28) Overview (04/24/2024): Previously prescribed at [facility] PM&R; apparently told Dr Dominguez that she tapered off oxycodone and flushed the remaining medication, however PM&R notes indicate that the patient's rx was discontinued after she reported lost meds; initial rx started after she stated she took someone else's oxycodone . [facility] 08/22 - reported taking 150-200mtg oxoycodone daily, withdrawal Immunizations Name Administration Dates Next Due Td [...] Done Comments Breast Cancer Screening 1976 Hepatitis A Vaccines (1 of 2 - Risk 2-dose series) 1995 Hepatitis B Vaccines (1 of 3 - [...] Procedure Name Priority Date/Time Associated Diagnosis Comments HEPATITIS C SCREENING Routine 08/25/2015 HIV SCREENING Routine 08/25/2015 LIPID PANEL Routine 08/25/2015 PAP SMEAR Routine 01/23/2012 from Last 3 Months or Most Recently Relevant to Health Maintenance Results * HIV Screening (08/25/2015) Pathologist [facility] HIV Screening abstracted us Historical Provider HEALTH MAINTENANCE Final Result * Hepatitis C Screening (08/25/2015) Pathologist [facility] Hepatitis C Screening abstracted us Historical Provider HEALTH MAINTENANCE Final Result * (ABNORMAL) Lipid panel (08/25/2015) Pathologist [facility] LDL/HDL Ratio 5(A) <=4 Triglycerides 172(A) <=150 mg/dL Cholesterol 201(A) <=200 mg/dL HDL 39(A) >=40 mg/dL LDL Cholesterol 128(A) <=100 mg/dL Blood Venous blood specimen / Unknown Historical Provider LAB BLOOD ORDERABLES Lida l Result * Pap Smear (01/23/2012) Pap smear no interpretation , abstracted Historical Provider HEALTH MAINTENANCE Final Result from Last 3 Months or Most Recently Relevant to Health Maintenance Insurance [place]ARE Care Teams C Software Developer Relationship Specialty Start Date End Date Physician, Pcp Unknown PCP - General 09/23/24
--- OUTSIDE RECORDS SUMMARY | 2025-01-04 16:04 | XMS_ITS | Data Portability ---
Author Organization [place] - [facility] deanna, GREG, Main Office - 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 [email or web address] Not available 07/14/2021 09:28:59 2021 [id number] nonspecific bila teral upper extremity symptoms in [...] ULTRASOUND DIAGNOSTIC (LIMITED) completed Rene Rice MD [address] [place], [address], [facility] 07/14/2021 09:24:13 cholecystectomy completed [facility] 07/14/2021 08:23:08 completed [facility] 07/14/2021 08:23:17 Imaging Results Imaging Date Name [...] Name and Address Organization Details Recorded Time [id number] Levaquin medicatio n Not available Not available Not available 07/14/2021 93842 2 RxNorm Not Available Not Available Not [...] and Address Organization Details Last Updated DateTime 11164.7 3 g 34.1 kg/m2 162.56 cm 98.3 [degF] 88 /min 128 mm[Hg] 80 mm[Hg] Cyril Aquino [place] - [facility], 08:26:31 Social History Question Answer Notes LastModified by Organizat ion Details LastModified Time Do You Have An Advance Directive? No [email or web address] Information n ot available 07/14/2021 What Is Your Level Of Alcohol Consumption? Occasional Information not available 07/14/2021 Is Blood Transfusion Acceptable In An Emergency? Yes [email or web address] Information not available 07/14/2021 In The 14 Days Before Symptom Onset, Have You Had Close Contact With A Laboratory-confirm ed COVID-19 While That Case Was Ill? No [email or web address] Information n ot available 07/14/2021 In The 14 Days Before Symptom Onset, Have You Had Close Contact With A Person Who Is Under Investigation For COVID-19 While That Person Was Ill? No Information not available 07/14/2021 Have You Been To An Area Known To Be High Risk For COVID-19? No Information not available 07/14/2021 Are You Currently Employed? No [email or web address] Information not available 07/14/2021 What Is The Highest Grade Or Level Of School You Have Completed Or The Highest Degree You Have Received? XH13311-5 [email or web address] Information not available 07/14/2021 Which Of Your Hands Is Dominant? Right [email or web address] Information n ot available 07/14/2021 How Many Children Do You Have? 4 [email or web address] Information not available 07/14/2021 What Is Your Relationship Status? [email or web address] Information not available 07/14/2021 Are You Passively Exposed To Smoke? No [email or web address] Information no t available 07/14/2021 Do You Feel Stressed (tense, Restless, Nervous, Or Anxious, Or Unable To Sleep At Night)? LC43062-2 [email or web address] Information not available 07/14/2021 Do You Use Any Illicit Or Recreational Drugs? No [email or web address] Information not available 07/14/2021 Do You Or Have You Ever Used Any Other Forms Of Tobacco Or Nicotine? No [email or web address] Information not available 07/14/2021 Sex: Unknown Functional Status Question Answer Note LastModified by Organization D etails LastModified Time Are you able to care for yourself? Yes [email or web address] Information not available 07/14/2021 What is your exercise level? Moderate [email or web address] Information not available 07/14/2021 Mental Status None recorded. Family History Nothing Reported Notes:updated...07/14/2021... CCW Medical History Condition Response Pancreatitis N HEME - Anemia N Gout N Hyperthyroidism N Rheumatoid arthritis N Osteoarthrosis N Irritable bowel syndrome N HEENT - Wears corrective lenses Y Depression N COPD N Pneumonia N Peptic ulcer disease N History of head and neck tumor N NEURO - Cerebral palsy N Skin infection N Active aids N Mitral valve prolapse N Renal failure N HIV positive N GI - GERD N Joint injury N Hypoparathyroidism N Hypercholesterolemia N MS - Fracture N Fibromyalgia Y Cerebrovascular accident N PSYCHE - Claustrophobia N Neuromuscular disease N Poliomyelitis / post polio N ENDOCRINE - Obesity N Hearing impairment N Dysvascular amputation LE N Other diagnosis N Anxiety disorder Y Deformity N CHEST - Sleep apnea N Crohn's disease N Pulmonary embolism N Chronic venous stasis disease N Psychosis N Coagulopathy N Cardiac valvular disease N Asthma N Blood clotting disorder N Are you under pain mgmt treatment N Fragility fracture N Vertigo N Hepatitis N Neuropathy Y Coronary artery disease N Pressure sore N Diabetes Type II (NIDDM) N Skin ulceration N Bipolar disorder Y Hypothyroidism N Legally blind N Glaucoma N Peripheral vascular disease N Pacemaker N Sinusitis / sinus infection N Cystic fibrosis N Sickle cell N Cholecystitis N VASCULAR - Deep venous thrombosis N Osteomyelitis N SKIN - Rash N INFECTIOUS - Current active infection N Diabetic Monitor N Previous myocadial infarction N Heart murmur N Itp / ttp N Lupus Arthritis N Congestive heart failure N Skin bruising N Diabetes Type I (IDDM) N HEART - Arrhythmia N Chemically anticoagulated N Fracture non-union N Dental caries / gingivitis N Dysvascular gangrene N - Cystitis N Renal dialysis N Dementia N Diverticulitis N Ulcerative colitis N MISC - Cancer N Seizure disorder N Organ transplant N Hypertension N Osteoporosis N Gynecological HistoryNo gynecological history recorded. Obstetrics History GPAL:G 0 P 0 0 0 0 Past Encounters Encounter ID Performer Location Encounter Start Date Encounter Closed Date Diagnosis/Indication Diagnosis SNOMED-CT Code Diagnosis ICD10 Code Diagnosis Note [id number] Rene Rice MD Main Office - [address] [address] 07/14/2021 07:50:25 07/14/2021 09:55:19 Numbness of hand 398863804 R20.0 [id number] Rene Rice MD Main Office - [address] [address] 2021 12:43:25 2021 13:21:53 Numbness of hand 140484750 R20.0 [facility] [id number] M 79.7 Health Concerns Section Related Observation LastModified by Organization Detai ls LastModified Time None Recorded Concern Status LastModified by Organization Details LastModified Time None Recorded Advance Directives Directive N: Payers Encounter Date Sequence Insurance Name Policy Number Policy Bishop Covered Member ID Bishop Member ID Guarantor Name 07/14/2021 1 [place] Amy Tomasa [id number] 5 Amy Tomasa 2021 1 [place] Amy Tomasa [id number] 5 Amy Tomasa Notes Date Note Type [...] Previous PT:none Work Related:no Rene Rice MD [address] [place] [address], [id number], [facility], 07/14/2021 14:27:14 2021 text/html Patient here today for follow up after EMG that was performed today, 07/25/21. Rene Rice MD [address] [place] [address], [phone], [facility], 07/28/2021 16:04:12 OBGyn Episode No OBEpisode recorded.
== END 2025-01-04 14:26 | disposition home or self-care (01) ==
LOC: HO.HGI 13:29
PROVIDERS: PCP Nurse Practitioner Family; Visit Provider Internal Medicine
DX: R74.8 Abnormal levels of other serum enzymes (principal); E66.9 Obesity, unspecified
CPT/HCPCS: 99204

== ENCOUNTER 2025-01-04 13:28 | Outpatient (REF) | payer MEDICARE, MEDICAID, SELFPAY ==
[2025-01-04 15:51] LABS: Hematocrit 39.7 % (37.0-47.0); Hemoglobin 13.7 g/dl (12.0-16.0); Mean Corpuscular HGB Conc 34.5 g/dl (31.0-35.0); Mean Corpuscular Hemoglobin 31.2 pg (27.0-33.0); Mean Corpuscular Volume 90.4 fL (80.0-98.0); Mean Platelet Volume 9.5 fL (9.4-12.3); Platelet Count 280 X10*3/uL (160-400); Red Blood Count 4.39 X10*6/uL (4.20-5.50); Red Cell Distribution Width 12.7 % (11.0-16.0); White Blood Count 7.2 X10*3/uL (4.8-10.8)
[2025-01-04 15:58] LABS: Estimated Average Glucose 108 mg/dL; Hemoglobin A1C 124.8284 umol/L; Hemoglobin A1c % 5.4 % (<6.0); Total Hemoglobin (HGBA1C) 3520.9558 umol/L
[2025-01-04 15:59] LABS: Prothrombin Time 11.2 SEC (10.9-12.4)
[2025-01-04 16:38] LABS: Ferritin 78 ng/mL (10-250)
[2025-01-04 16:51] LABS: Alanine Aminotransferase 26 U/L (0-31); Albumin Level 4.3 g/dL (3.5-5.0); Alkaline Phosphatase 112 U/L (39-117); Anion Gap 12 (12-20); Aspartate Amino Transferase 33 U/L (5-31); Bilirubin Total 0.4 mg/dL (0.0-1.0); Blood Urea Nitrogen 9 mg/dL (9-16); Carbon Dioxide 26 mmol/L (22-29); Chloride 105 mmol/L (96-108); Cholesterol 240 mg/dL (<200); Estimated Glomerular Filt Rate > 60; Glucose Random 85 mg/dL (60-115); HDL Cholesterol 62 mg/dL (>40); Iron 90 mcg/dL (30-160); LDL Cholesterol Calculated 151 mg/dL (<100); Percent Iron Saturation 23 % (15-50); Potassium 3.9 mmol/L (3.3-5.1); Sodium 139 mmol/L (135-145); Total Iron Binding Capacity 383 mcg/dL (228-428); Total Protein 7.9 g/dL (6.5-8.0); Triglycerides 138 mg/dL (<150); Unsaturated Iron Binding 293 ug/dL
[2025-01-04 16:53] LABS: TSH reflex Free T4 2.77 uIU/mL (0.32-4.0)
--- OUTSIDE RECORDS SUMMARY | 2025-01-04 17:43 | XMS_ITS | Clinical Summary ---
Author Organization Patient Business Ser [facility] Address [address] [place] [address] Care Team Providers Care Senior Supply Chain Analyst Name Role Phone Physician, Pcp Unknown Primary [...] CMS/HCC V28) Overview (04/24/2024): Previously prescribed at [facility] PM&R; apparently told Dr Dominguez that she tapered off oxycodone and flushed the remaining medication, however PM&R notes indicate that the patient's rx was discontinued after she reported lost meds; initial rx started after she stated she took someone else's oxycodone . [facility] 08/22 - reported taking 150-200mtg oxoycodone [...] Result * Hepatitis C Screening (08/25/2015) Pathologist [facility] Hepatitis C Screening abstracted us Historical Provider [...] Insurance [place] Care Teams Senior Supply Chain Analyst Relationship Specialty Start Date End Date Physician, Pcp Unknown PCP - General 09/23/24
[2025-01-05 04:03] LABS: Alpha 1 Anti-trypsin 161 mg/dL (83-199); Ceruloplasmin 40 mg/dL (14-48)
[2025-01-05 06:12] LABS: Immunoglobulin A 517 mg/dL (47-310); Immunoglobulin G 1146 mg/dL (600-1640)
[2025-01-05 08:35] LABS: HIV AB/AG Nonreactive (Nonreactive); HIV Num 1 0.06 S/CO (0.00-0.99)
[2025-01-05 10:28] LABS: Alpha Fetoprotein 2.4 ng/mL
[2025-01-05 19:34] LABS: Thyroid Peroxidase Antibodies 6 IU/mL (<9)
[2025-01-05 23:43] LABS: Transglutaminase IgA <1.0 U/mL
[2025-01-06 13:33] LABS: Mitochondrial Antibodies NEGATIVE (NEGATIVE)
[2025-01-07 12:53] LABS: Smooth Muscle Antibody <20 U (<20)
[2025-01-07 14:18] LABS: Liver Kidney Microsomal Ab <=20.0 U (<=20.0)
[2025-01-13 20:57] LABS: Phosphatidylethanol 16:0-18:1 NEGATIVE ng/mL (<20); Phosphatidylethanol 16:0-18:2 NEGATIVE ng/mL (<20)
== END 2025-01-04 13:29 | disposition home or self-care (01) ==
LOC: HO.LAB 13:28
PROVIDERS: PCP Nurse Practitioner Family; Visit Provider Internal Medicine
DX: R79.89 Other specified abnormal findings of blood chemistry (principal); E03.9 Hypothyroidism, unspecified; R74.8 Abnormal levels of other serum enzymes; E66.9 Obesity, unspecified
CPT/HCPCS: 36415; 80053; 80061; 80321; 82103; 82105; 82390; 82728; 82784; 83036; 83540; 84443; 85027; 85610; 86015; 86364; 86376; 86381; 87389; 99202

== ENCOUNTER 2025-01-05 12:55 | Outpatient (REF) | payer MEDICARE, MEDICAID, SELFPAY ==
--- NOTE | ~2025-01-05 | US_ITS ---
EXAMINATION: US ABDOMEN COMPLETE CLINICAL INFORMATION: Abnormal levels of serum enzymes.. COMPARISON: None available. TECHNIQUE: Real-time imaging of the abdominal viscera. FINDINGS: PANCREAS: Visualized portions are unremarkable. ABDOMINAL AORTA: The proximal, mid, and distal segments are normal in caliber. INFERIOR VENA CAVA: Visualized portions are normal. LIVER: The liver is normal in size. Right hepatic lobe measures 16.2 cm The liver contour is slightly increased. Parenchymal echogenicity is normal. No focal hepatic lesion. There is no intrahepatic biliary duct dilatation seen. There is normal hepatopedal flow seen in the portal vein on Doppler exam. GALLBLADDER: The gallbladder has been surgically removed. COMMON BILE DUCT: Normal in caliber measuring 0.4 - 0.8 cm in diameter. RIGHT KIDNEY: No hydronephrosis. No renal calculi or focal parenchymal lesions. The kidney measures 10.6 cm in maximum dimension. LEFT KIDNEY: No hydronephrosis. No renal calculi or focal parenchymal lesions. The kidney measures 10.8 cm in maximum dimension. SPLEEN: The spleen measures 10.1 cm in maximum dimension. FREE FLUID: None. US/US abdomen complete IMPRESSION: Diffuse fatty liver without focal lesion or intrahepatic ductal dilatation. Cholecystectomy. Electronically signed by: Grupo Bueno MD 01/05/2025 02:35 PM EDT
--- OUTSIDE RECORDS SUMMARY | 2025-01-05 14:47 | XMS_ITS | Clinical Summary ---
Author Organization Patient Business Ser [facility] Address [address] [place] [address] Care Team Providers Care Alteration Inspector Name Role Phone Physician, Pcp Unknown Primary [...] CMS/HCC V28) Overview (04/24/2024): Previously prescribed at [facility] PM&R; apparently told Dr Dominguez that she tapered off oxycodone and flushed the remaining medication, however PM&R notes indicate that the patient's rx was discontinued after she reported lost meds; initial rx started after she stated she took someone else's oxycodone . [facility] 08/22 - reported taking 150-200mtg oxoycodone [...] Maintenance Results * HIV Screening (08/25/2015) Pathologist [facility] HIV Screening abstracted us Historical Provider HEALTH MAINTENANCE Final Result * Hepatitis C Screening (08/25/2015) Pathologist [facility] Hepatitis C Screening abstracted us Historical Provider HEALTH MAINTENANCE Final Result * (ABNORMAL) Lipid panel (08/25/2015) Pathologist [facility] LDL/HDL Ratio 5(A) <=4 Triglycerides 172(A) <=150 [...] Insurance [place] Care Teams Alteration Inspector Relationship Specialty Start Date End Date Physician, Pcp Unknown PCP - General 09/23/24
== END 2025-01-05 12:56 | disposition home or self-care (01) ==
LOC: HO.US 12:55
PROVIDERS: PCP Nurse Practitioner Family; Visit Provider Internal Medicine
DX: R74.9 Abnormal serum enzyme level, unspecified (principal); K76.0 Fatty (change of) liver, not elsewhere classified
CPT/HCPCS: 76700

== ENCOUNTER → 2025-01-05 12:57 | Outpatient (BNV) | payer MEDICARE, MEDICAID, SELFPAY | PROVIDERS: PCP Nurse Practitioner Family; Visit Provider Radiology Diagnostic Radiology | DX: R74.8 Abnormal levels of other serum enzymes (principal); K76.0 Fatty (change of) liver, not elsewhere classified; Z90.49 Acquired absence of other specified parts of digestive tract | CPT/HCPCS: 76700 ==